=== PATIENT | female | born 1960 | race Asian ===

== ENCOUNTER 2016-06-03 09:18 | Inpatient (IN) | payer BC ==
[~2016-06-03] VITALS: Ht 170.2 cm; Wt 66.2 kg
[2016-06-03] VITALS (12 sets, daily range): BP systolic 121–179; BP diastolic 65–84; PULSE 53–95; TEMP 97.6–98.7
[2016-06-03 13:43] LABS: ADD PATHOLOGY DIFF REVIEW NO
[2016-06-03 13:53] LABS: MEAN CELL VOLUME 98 fl (80.0-100.0); MEAN CORPUSCULAR HGB CONC 32 g/dl (33.0-37.0); MEAN PLATELET VOLUME 11.6 fl (7.4-10.4); PLATELET COUNT 182 K/mm3 (130-400); RED BLOOD COUNT 3.71 M/mm3 (4.10-5.30); REDCELL DISTRIBUTION WIDTH-CV 12.7 % (11.5-14.5); WHITE BLOOD COUNT 9.6 K/mm3 (4.8-10.8)
[2016-06-03 13:54] LABS: HEMATOCRIT 36.3 % (37.0-47.0); HEMOGLOBIN 11.7 g/dl (12.5-16.0); MEAN CORPUSCULAR HEMOGLOBIN 32 pg (27.0-31.0)
[2016-06-03 13:55] LABS: INR 0.9 (0.8-3.0); PROTHROMBIN TIME 10.2 SECONDS (9.7-12.8)
[2016-06-03 14:03] LABS: BAND 11 % (0-10); BASOPHIL 3 % (0-2); EOSINOPHIL 3 % (0-4); NEUTROPHILS 58 % (42.0-75.2); PLATELET ESTIMATE NORMAL (NORMAL); TOTAL CELLS COUNTED 100
[2016-06-03 14:08] LABS: ADJUSTED CALCIUM 8.8 mg/dL (8.4-10.2); ALBUMIN 3.5 gm/dL (3.5-5.0); BILIRUBIN,TOTAL 0.7 mg/dL (0.0-1.0); CALCIUM 8.4 mg/dL (8.4-10.2); MAGNESIUM 4.5 mg/dL (1.6-2.3); PHOSPHOROUS 6.4 mg/dL (2.5-4.5); POTASSIUM 4.6 mmol/L (3.4-5.0); TOTAL PROTEIN 6.6 gm/dL (6.4-8.2)
[2016-06-03 14:12] LABS: CREATININE, serum 4.32 mg/dL (0.52-1.25)
[2016-06-04 01:37] VITALS: BP 112/62; PULSE 76; TEMP 98
[2016-06-04 06:22] VITALS: BP 129/75; PULSE 52; TEMP 97.5
[2016-06-04 07:21] LABS: ADD PATHOLOGY DIFF REVIEW NO
[2016-06-04 07:32] LABS: MEAN CELL VOLUME 99 fl (80.0-100.0); MEAN CORPUSCULAR HGB CONC 32 g/dl (33.0-37.0); MEAN PLATELET VOLUME 11.7 fl (7.4-10.4); PLATELET COUNT 170 K/mm3 (130-400); RED BLOOD COUNT 3.36 M/mm3 (4.10-5.30); REDCELL DISTRIBUTION WIDTH-CV 12.8 % (11.5-14.5); WHITE BLOOD COUNT 11.1 K/mm3 (4.8-10.8)
[2016-06-04 07:33] LABS: HEMATOCRIT 33.2 % (37.0-47.0); HEMOGLOBIN 10.7 g/dl (12.5-16.0); MEAN CORPUSCULAR HEMOGLOBIN 32 pg (27.0-31.0)
[2016-06-04 07:38] LABS: ADJUSTED CALCIUM 8.6 mg/dL (8.4-10.2); ALBUMIN 3.1 gm/dL (3.5-5.0); BILIRUBIN,TOTAL 0.5 mg/dL (0.0-1.0); CALCIUM 7.9 mg/dL (8.4-10.2); CREATININE, serum 2.2 mg/dL (0.52-1.25); MAGNESIUM 3.5 mg/dL (1.6-2.3); PHOSPHOROUS 5.9 mg/dL (2.5-4.5); POTASSIUM 4.3 mmol/L (3.4-5.0); TOTAL PROTEIN 6.1 gm/dL (6.4-8.2)
[2016-06-04 07:39] LABS: BAND 18 % (0-10); EOSINOPHIL 1 % (0-4); METAMYELOCYTE 1 % (0-0); NEUTROPHILS 70 % (42.0-75.2); PLATELET ESTIMATE NORMAL (NORMAL); TOTAL CELLS COUNTED 100
[2016-06-04 08:48] VITALS: BP 130/81; PULSE 100; TEMP 97
[2016-06-04 13:28] VITALS: BP 115/67; PULSE 60; TEMP 97.5
[2016-06-04 17:25] VITALS: BP 126/69; PULSE 66; TEMP 98.2
[2016-06-04 22:30] VITALS: BP 138/79; PULSE 53; TEMP 98.1
[2016-06-05] VITALS (10 sets, daily range): BP systolic 127–173; BP diastolic 64–85; PULSE 48–78; TEMP 97.8–98.5
[2016-06-05 12:40] LABS: BASO # 0.1 (0.0-0.2); BASO % 0.6 % (0.0-2.0); EOS # 0.4 (0.0-0.7); EOS % 4.2 % (0-4.0); GRAN # 7.3 (1.4-6.5); GRAN % 69.2 % (42.2-75.2); LYMPH # 2.2 (1.2-3.4); LYMPH % 21.2 % (20.0-51.0); MEAN CELL VOLUME 97 fl (80.0-100.0); MEAN CORPUSCULAR HGB CONC 33 g/dl (33.0-37.0); MEAN PLATELET VOLUME 11.3 fl (7.4-10.4); MONO # 0.5 (0.1-0.6); MONO % 4.4 % (1.7-9.3); PLATELET COUNT 169 K/mm3 (130-400); RED BLOOD COUNT 3.48 M/mm3 (4.10-5.30); REDCELL DISTRIBUTION WIDTH-CV 12.7 % (11.5-14.5); WHITE BLOOD COUNT 10.6 K/mm3 (4.8-10.8)
[2016-06-05 12:42] LABS: HEMATOCRIT 33.9 % (37.0-47.0); HEMOGLOBIN 11.3 g/dl (12.5-16.0); MEAN CORPUSCULAR HEMOGLOBIN 32 pg (27.0-31.0)
[2016-06-05 12:54] LABS: CALCIUM 8.8 mg/dL (8.4-10.2); CREATININE, serum 1.34 mg/dL (0.52-1.25); MAGNESIUM 2.8 mg/dL (1.6-2.3); PHOSPHOROUS 4.5 mg/dL (2.5-4.5); POTASSIUM 3.9 mmol/L (3.4-5.0)
[2016-06-06 02:21] VITALS: BP 142/74; PULSE 51; TEMP 98.2
[2016-06-06 05:00] VITALS: BP 150/78; PULSE 57; TEMP 98.5
[2016-06-06 06:00] LABS: PH 8 (5-8); SQUAMOUS EPITHELIAL None Seen /hpf; URINE APPEARANCE Hazy; URINE BACTERIA None Seen /hpf; URINE BILIRUBIN Negative (NEGATIVE); URINE BLOOD 3+ (NEGATIVE); URINE COLOR Red; URINE GLUCOSE Negative (NEGATIVE); URINE KETONE Negative (NEGATIVE); URINE RBC >50 /hpf; URINE UROBILINOGEN Negative (NEGATIVE)
[2016-06-06 06:01] LABS: URINE WBC 0-2 /hpf
[2016-06-06 08:20] LABS: HEMATOCRIT 33.7 % (37.0-47.0); HEMOGLOBIN 10.9 g/dl (12.5-16.0)
[2016-06-06 08:56] LABS: CREATININE, serum 1.19 mg/dL (0.52-1.25); POTASSIUM 3.9 mmol/L (3.4-5.0)
[2016-06-06 11:25] VITALS: BP 103/59; PULSE 53; TEMP 98
[2016-06-06 13:25] VITALS: BP 115/66; PULSE 53; TEMP 97.8
[2016-06-06 18:25] VITALS: BP 151/87; PULSE 58; TEMP 98.2
[2016-06-06 20:41] VITALS: BP 130/74; PULSE 88; TEMP 98
[2016-06-06 23:49] LABS: PROT-CREAT RATIO, URINE 1.9 (())
[2016-06-07 02:01] VITALS: BP 153/80; PULSE 53; TEMP 98.2
[2016-06-07 04:31] VITALS: BP 145/78; PULSE 94; TEMP 97.2
[2016-06-07 06:55] LABS: BASO # 0.1 (0.0-0.2); BASO % 0.5 % (0.0-2.0); EOS # 0.4 (0.0-0.7); EOS % 4.2 % (0-4.0); GRAN # 6.8 (1.4-6.5); GRAN % 74.1 % (42.2-75.2); HEMATOCRIT 37.1 % (37.0-47.0); HEMOGLOBIN 12.2 g/dl (12.5-16.0); LYMPH # 1.4 (1.2-3.4); LYMPH % 15.4 % (20.0-51.0); MEAN CELL VOLUME 97 fl (80.0-100.0); MEAN CORPUSCULAR HEMOGLOBIN 32 pg (27.0-31.0); MEAN CORPUSCULAR HGB CONC 33 g/dl (33.0-37.0); MEAN PLATELET VOLUME 11.2 fl (7.4-10.4); MONO # 0.5 (0.1-0.6); MONO % 5.4 % (1.7-9.3); PLATELET COUNT 198 K/mm3 (130-400); RED BLOOD COUNT 3.81 M/mm3 (4.10-5.30); REDCELL DISTRIBUTION WIDTH-CV 12.3 % (11.5-14.5); WHITE BLOOD COUNT 9.1 K/mm3 (4.8-10.8)
[2016-06-07 07:17] LABS: CALCIUM 9.3 mg/dL (8.4-10.2); CREATININE, serum 1.1 mg/dL (0.52-1.25); MAGNESIUM 2.5 mg/dL (1.6-2.3); POTASSIUM 4.1 mmol/L (3.4-5.0)
[2016-06-07 09:52] VITALS: BP 121/69; PULSE 61; TEMP 97.7
[2016-06-07] MEDS ORDERED: COLACE 100100 MG/CAP PO (13:04)
[2016-06-07] MEDS ORDERED: NORVASC 5MG5 MG/TAB PO (13:04)
[2016-06-07] MEDS ORDERED: NORCO 325 MG-51 TAB PO (13:04)
[2016-06-07] MEDS ORDERED: BENTYL 10MG10 MG/CAP PO (13:04)
[2016-06-07 13:50] VITALS: BP 138/73; PULSE 56; TEMP 98.4
== END 2016-06-07 16:00 | disposition home or self-care (01) | DRG 988 ==
LOC: SURG 09:18
PROVIDERS: Family Medicine; Internal Medicine; Internal Medicine Nephrology; Nurse Practitioner Family; Urology
PROC: 0TBB8ZZ Excision of Bladder, Via Natural or Artificial Opening Endoscopic (ICD-10-PCS; principal; 2016-06-03 15:00)
PROC: 0T788DZ Dilation of Bilateral Ureters with Intraluminal Device, Via Natural or Artificial Opening Endoscopic (ICD-10-PCS; 2016-06-03 15:00)
PROC: 0D7P8ZZ Dilation of Rectum, Via Natural or Artificial Opening Endoscopic (ICD-10-PCS; 2016-06-05)
DX: C19 Malignant neoplasm of rectosigmoid junction (principal); N17.9 Acute kidney failure, unspecified; N13.1 Hydronephrosis with ureteral stricture, not elsewhere classified; C78.02 Secondary malignant neoplasm of left lung; K92.1 Melena; I10 Essential (primary) hypertension; F17.210 Nicotine dependence, cigarettes, uncomplicated; E83.41 Hypermagnesemia; E83.39 Other disorders of phosphorus metabolism
CPT/HCPCS: 99223-AI; 99232-AI; 99233-AI; 99239; C1769; C1876; C2617; J0690; J1100; J1644; J2270; J2405; J2704; J3010; J3480; J7030; J7120; Q9967

== ENCOUNTER 2016-07-03 13:44 | Day surgery (SDC) | payer BC ==
[~2016-07-03] VITALS: Ht 170.2 cm; Wt 65.0 kg
[~2016-07-03 13:44] MED LIST: BENTYL 10MG10 MG/CAP PO; COLACE 100100 MG/CAP PO; NORCO 325 MG-51 TAB PO; NORVASC 5MG5 MG/TAB PO
[2016-07-03 14:02] VITALS: BP 98/70; PULSE 81; TEMP 97.9
[2016-07-03 15:30] VITALS: BP 89/68; PULSE 92
== END 2016-07-03 15:47 | disposition home or self-care (01) ==
LOC: SDCO 13:44
DX: C20 Malignant neoplasm of rectum (principal); C18.9 Malignant neoplasm of colon, unspecified

== ENCOUNTER 2016-09-15 06:55 | Day surgery (SDC) | payer BC ==
[~2016-09-15] VITALS: Ht 171.4 cm; Wt 60.9 kg
[2016-09-15] MEDS ORDERED: ROXICODONE 55 MG/TAB PO (07:31)
[2016-09-15 07:38] VITALS: BP 91/59; PULSE 87; TEMP 98.4
[2016-09-15 07:58] LABS: CALCIUM 9.1 mg/dL (8.4-10.2); CREATININE, serum 0.79 mg/dL (0.52-1.25); POTASSIUM 4.1 mmol/L (3.4-5.0)
[2016-09-15 10:12] VITALS: BP 97/62; PULSE 79; TEMP 97.6
[2016-09-15] MEDS ORDERED: SENOKOT8.6 MG PO (10:22)
[2016-09-15] MEDS ORDERED: NORCO 325 MG-51 TAB PO (10:22)
[2016-09-15] MEDS ORDERED: PYRIDIUM 100MG100 MG PO (10:23)
[2016-09-15 10:25] VITALS: BP 93/64; PULSE 82
[2016-09-15 10:50] VITALS: BP 98/56; PULSE 75
[2016-09-15 11:05] VITALS: BP 102/65; PULSE 83; TEMP 97.3
== END 2016-09-15 11:00 | disposition home or self-care (01) ==
LOC: SDCO 06:55
PROVIDERS: Nurse Anesthetist, Certified Registered
DX: N13.1 Hydronephrosis with ureteral stricture, not elsewhere classified (principal); C18.9 Malignant neoplasm of colon, unspecified; J44.9 Chronic obstructive pulmonary disease, unspecified; I10 Essential (primary) hypertension; F17.210 Nicotine dependence, cigarettes, uncomplicated; Z92.21 Personal history of antineoplastic chemotherapy; Z92.3 Personal history of irradiation
CPT/HCPCS: C1769; C2617; J0690; J1100; J2405; J2704; J3010; J7030; Q9967

== ENCOUNTER 2016-12-12 18:18 | Inpatient (IN) | payer BC ==
[~2016-12-12] VITALS: Ht 171.4 cm; Wt 56.6 kg
[2016-12-12] VITALS (208 sets, daily range): BP systolic 87; BP diastolic 69; PULSE 63; TEMP 97; O2SAT 61–100
[~2016-12-12 18:18] MED LIST changes: +PYRIDIUM 100MG100 MG PO; +ROXICODONE 55 MG/TAB PO; +SENOKOT8.6 MG PO
[2016-12-12 20:23] LABS: CALCIUM 9.6 mg/dL (8.4-10.2); POTASSIUM 5.6 mmol/L (3.4-5.0)
[2016-12-12 20:24] LABS: CREATININE, serum 7.78 mg/dL (0.52-1.25)
[2016-12-13] VITALS (1299 sets, daily range): BP systolic 87–125; BP diastolic 64–76; PULSE 56–69; TEMP 97–98.6; O2SAT 78–100
[2016-12-13] MEDS ORDERED: DAZIDOX10 MG PO (01:44)
[2016-12-13 05:22] LABS: BASO % 0.4 % (0.0-2.0); EOS # 0.2 (0.0-0.7); GRAN # 4.3 (1.4-6.5); LYMPH # 0.4 (1.2-3.4); LYMPH % 6.7 % (20.0-51.0); MEAN CELL VOLUME 89 fl (80.0-100.0); MEAN CORPUSCULAR HGB CONC 32 g/dl (33.0-37.0); MEAN PLATELET VOLUME 10.3 fl (7.4-10.4); MONO # 0.3 (0.1-0.6); MONO % 6.5 % (1.7-9.3); PLATELET COUNT 177 K/mm3 (130-400); REDCELL DISTRIBUTION WIDTH-CV 15.7 % (11.5-14.5); WHITE BLOOD COUNT 5.2 K/mm3 (4.8-10.8)
[2016-12-13 05:23] LABS: HEMATOCRIT 23.2 % (37.0-47.0); HEMOGLOBIN 7.3 g/dl (12.5-16.0); MEAN CORPUSCULAR HEMOGLOBIN 28 pg (27.0-31.0)
[2016-12-13 05:27] LABS: INR 1.1 (0.8-3.0); PROTHROMBIN TIME 11.8 SECONDS (9.7-12.8)
[2016-12-13 05:32] LABS: ADJUSTED CALCIUM 9.6 mg/dL (8.4-10.2); BILIRUBIN,TOTAL 0.5 mg/dL (0.0-1.0); CALCIUM 8.8 mg/dL (8.4-10.2); TOTAL PROTEIN 6.4 gm/dL (6.4-8.2)
[2016-12-13 05:39] LABS: CREATININE, serum 8.07 mg/dL (0.52-1.25); POTASSIUM 6.2 mmol/L (3.4-5.0)
[2016-12-13 11:23] LABS: PH 5 (5-8); SQUAMOUS EPITHELIAL 0-2 /hpf; URINE APPEARANCE Cloudy; URINE BACTERIA Rare /hpf; URINE BILIRUBIN Negative (NEGATIVE); URINE BLOOD 2+ (NEGATIVE); URINE COLOR Yellow; URINE GLUCOSE Negative (NEGATIVE); URINE KETONE Negative (NEGATIVE); URINE UROBILINOGEN Negative (NEGATIVE)
[2016-12-13 16:24] LABS: CALCIUM 8.7 mg/dL (8.4-10.2)
[2016-12-13 16:28] LABS: CREATININE, serum 6.93 mg/dL (0.52-1.25)
[2016-12-13 16:29] LABS: POTASSIUM 6.6 mmol/L (3.4-5.0)
[2016-12-13 20:59] LABS: CALCIUM 8.7 mg/dL (8.4-10.2); POTASSIUM 5.2 mmol/L (3.4-5.0)
[2016-12-13 21:08] LABS: CREATININE, serum 6.22 mg/dL (0.52-1.25)
[2016-12-14] VITALS (789 sets, daily range): BP systolic 99–116; BP diastolic 58–71; PULSE 58–70; TEMP 97.5–98.6; O2SAT 84–100
[2016-12-14 04:43] LABS: ADD PATHOLOGY DIFF REVIEW NO
[2016-12-14 04:57] LABS: HEMATOCRIT 23.9 % (37.0-47.0); HEMOGLOBIN 7.5 g/dl (12.5-16.0); MEAN CELL VOLUME 89 fl (80.0-100.0); MEAN CORPUSCULAR HEMOGLOBIN 28 pg (27.0-31.0); MEAN CORPUSCULAR HGB CONC 31 g/dl (33.0-37.0); MEAN PLATELET VOLUME 10.6 fl (7.4-10.4); PLATELET COUNT 204 K/mm3 (130-400); RED BLOOD COUNT 2.69 M/mm3 (4.10-5.30); REDCELL DISTRIBUTION WIDTH-CV 15.9 % (11.5-14.5); RETIC % 0.6 % (0.5-3.52); WHITE BLOOD COUNT 5.2 K/mm3 (4.8-10.8)
[2016-12-14 04:58] LABS: ADJUSTED CALCIUM 9.3 mg/dL (8.4-10.2); BILIRUBIN,TOTAL 0.2 mg/dL (0.0-1.0); CALCIUM 8.5 mg/dL (8.4-10.2); POTASSIUM 5.2 mmol/L (3.4-5.0); TOTAL PROTEIN 6.3 gm/dL (6.4-8.2)
[2016-12-14 05:12] LABS: BAND 19 % (0-10); EOSINOPHIL 2 % (0-4); NEUTROPHILS 70 % (42.0-75.2); PLATELET ESTIMATE NORMAL (NORMAL); ROULEAUX 1+; TOTAL CELLS COUNTED 100
[2016-12-14 05:16] LABS: CREATININE, serum 4.93 mg/dL (0.52-1.25)
[2016-12-15 04:52] VITALS: BP 109/70; PULSE 62; TEMP 97
[2016-12-15 05:47] LABS: CALCIUM 8.3 mg/dL (8.4-10.2); CREATININE, serum 2.41 mg/dL (0.52-1.25); MAGNESIUM 1.5 mg/dL (1.6-2.3); POTASSIUM 3.8 mmol/L (3.4-5.0)
[2016-12-15 08:05] VITALS: BP 124/71; PULSE 59; TEMP 97.7
[2016-12-15 08:39] LABS: BASO % 0.4 % (0.0-2.0); EOS # 0.3 (0.0-0.7); EOS % 6.3 % (0-4.0); GRAN # 3.5 (1.4-6.5); GRAN % 75.9 % (42.2-75.2); LYMPH # 0.4 (1.2-3.4); LYMPH % 8.5 % (20.0-51.0); MEAN CELL VOLUME 87 fl (80.0-100.0); MEAN CORPUSCULAR HGB CONC 32 g/dl (33.0-37.0); MEAN PLATELET VOLUME 11.4 fl (7.4-10.4); MONO # 0.4 (0.1-0.6); MONO % 8.7 % (1.7-9.3); PLATELET COUNT 198 K/mm3 (130-400); RED BLOOD COUNT 2.67 M/mm3 (4.10-5.30); WHITE BLOOD COUNT 4.6 K/mm3 (4.8-10.8)
[2016-12-15 08:40] LABS: HEMATOCRIT 23.2 % (37.0-47.0); HEMOGLOBIN 7.5 g/dl (12.5-16.0); MEAN CORPUSCULAR HEMOGLOBIN 28 pg (27.0-31.0)
[2016-12-15] MEDS ORDERED: MAG-OX 400400 MG/TAB PO (10:43)
[2016-12-15] MEDS ORDERED: FERROUS SU325 MG/TAB PO (10:43)
[2016-12-15] MEDS ORDERED: BACTRIM DS 8001 TAB PO (10:44)
[2016-12-15 11:43] VITALS: BP 115/73; PULSE 65; TEMP 98.2
== END 2016-12-15 17:43 | disposition home or self-care (01) | DRG 683 ==
LOC: ICU 18:18 → MEDICAL 12-14 13:30
PROVIDERS: Family Medicine; Internal Medicine; Physical Therapist; Physician Assistant; Urology
PROC: 0T788DZ Dilation of Bilateral Ureters with Intraluminal Device, Via Natural or Artificial Opening Endoscopic (ICD-10-PCS; principal; 2016-12-13 10:00)
PROC: 0TP98DZ Removal of Intraluminal Device from Ureter, Via Natural or Artificial Opening Endoscopic (ICD-10-PCS; 2016-12-13 10:00)
PROC: BT1D1ZZ Fluoroscopy of Right Kidney, Ureter and Bladder using Low Osmolar Contrast (ICD-10-PCS; 2016-12-13 10:00)
DX: N17.9 Acute kidney failure, unspecified (principal); T83.89XA Other specified complication of genitourinary prosthetic devices, implants and grafts, initial encounter; N39.0 Urinary tract infection, site not specified; C19 Malignant neoplasm of rectosigmoid junction; C78.02 Secondary malignant neoplasm of left lung; E87.2 Acidosis; N13.6 Pyonephrosis; E87.5 Hyperkalemia; Q62.5 Duplication of ureter; Z93.2 Ileostomy status; F17.210 Nicotine dependence, cigarettes, uncomplicated; E83.42 Hypomagnesemia; D64.9 Anemia, unspecified
CPT/HCPCS: 99223-AI; 99232-AI; 99233-AI; 99239; A4315; C1769; C2617; J0690; J0696; J2370; J2550; J2704; J3010; J3475; J7030; Q9967

== ENCOUNTER 2017-01-19 08:53 | Day surgery (SDC) | payer BC ==
[~2017-01-19] VITALS: Ht 172.7 cm; Wt 59.5 kg
[~2017-01-19 08:53] MED LIST changes: +BACTRIM DS 8001 TAB PO; +DAZIDOX10 MG PO; +FERROUS SU325 MG/TAB PO; +MAG-OX 400400 MG/TAB PO
[2017-01-19 09:39] VITALS: BP 104/61; PULSE 71; TEMP 98.2
[2017-01-19 13:25] VITALS: BP 92/68; PULSE 72; TEMP 98.3
[2017-01-19 13:40] VITALS: PULSE 69
[2017-01-19 13:55] VITALS: BP 110/49; PULSE 67
[2017-01-19 14:12] LABS: CALCIUM 8.9 mg/dL (8.4-10.2); CREATININE, serum 3.69 mg/dL (0.52-1.25); POTASSIUM 5.6 mmol/L (3.4-5.0)
[2017-01-19 15:06] VITALS: BP 114/66; PULSE 59
== END 2017-01-19 16:34 | disposition home or self-care (01) ==
LOC: SDCO 08:53
PROVIDERS: Urology
DX: N13.5 Crossing vessel and stricture of ureter without hydronephrosis (principal); T83.12 Displacement of other urinary devices and implants; C19 Malignant neoplasm of rectosigmoid junction; F17.210 Nicotine dependence, cigarettes, uncomplicated; Z79.899 Other long term (current) drug therapy; N19 Unspecified kidney failure; Z68.20 Body mass index [BMI] 20.0-20.9, adult
CPT/HCPCS: C1769; C2617; J0690; J1100; J1170; J2405; J2704; J3010; J7120

== ENCOUNTER 2017-06-22 07:41 | Day surgery (SDC) | payer BC ==
[~2017-06-22] VITALS: Ht 172.7 cm; Wt 71.4 kg
[2017-06-22 08:23] VITALS: BP 111/58; PULSE 71; TEMP 97.4
[2017-06-22 10:35] VITALS: BP 102/67; PULSE 57; TEMP 97.3
[2017-06-22 10:50] VITALS: BP 109/67; PULSE 58
[2017-06-22 11:00] VITALS: BP 106/66; PULSE 57
[2017-06-22 11:15] VITALS: BP 113/70; PULSE 56
[2017-06-22 11:30] VITALS: BP 109/65; PULSE 59
== END 2017-06-22 12:15 | disposition home or self-care (01) ==
LOC: SDCO 07:41
DX: N13.1 Hydronephrosis with ureteral stricture, not elsewhere classified (principal); Q62.5 Duplication of ureter; F17.210 Nicotine dependence, cigarettes, uncomplicated; J44.9 Chronic obstructive pulmonary disease, unspecified; N17.8 Other acute kidney failure; Z85.048 Personal history of other malignant neoplasm of rectum, rectosigmoid junction, and anus; Z85.038 Personal history of other malignant neoplasm of large intestine; Z82.49 Family history of ischemic heart disease and other diseases of the circulatory system
CPT/HCPCS: C1769; C2617; J0690; J1100; J1644; J2405; J2704; J3010; J7120

== ENCOUNTER → 2017-07-05 | Outpatient (CLI) | payer BC | LOC: COL.RAD 08:00 | DX: Z43.2 Encounter for attention to ileostomy (principal); C20 Malignant neoplasm of rectum; Z98.0 Intestinal bypass and anastomosis status ==

== ENCOUNTER 2017-10-05 09:16 | Outpatient (CLI) | payer BC ==
[~2017-10-05] VITALS: Ht 172.7 cm; Wt 72.7 kg
[2017-10-05] VITALS (17 sets, daily range): BP systolic 102–124; BP diastolic 65–86; PULSE 58–75
== END 2017-10-05 15:15 | disposition home or self-care (01) ==
LOC: COL.RAD 09:16
DX: R91.1 Solitary pulmonary nodule (principal); Z85.048 Personal history of other malignant neoplasm of rectum, rectosigmoid junction, and anus

== ENCOUNTER 2017-10-19 05:28 | Day surgery (SDC) | payer BC ==
[~2017-10-19] VITALS: Ht 172.7 cm; Wt 72.1 kg
[2017-10-19 05:47] VITALS: BP 101/73; PULSE 67; TEMP 97.9
[2017-10-19 06:27] LABS: CALCIUM 9.1 mg/dL (8.4-10.2); CREATININE, serum 1.15 mg/dL (0.52-1.25); POTASSIUM 3.7 mmol/L (3.4-5.0)
[2017-10-19 08:35] VITALS: BP 105/66; PULSE 53; TEMP 97.3
[2017-10-19 08:50] VITALS: BP 117/67; PULSE 54
[2017-10-19 09:05] VITALS: BP 119/72; PULSE 53
[2017-10-19 09:20] VITALS: BP 103/69; PULSE 58
[2017-10-19 09:50] VITALS: BP 118/68; PULSE 65
== END 2017-10-19 10:02 | disposition home or self-care (01) ==
LOC: SDCO 05:28
PROVIDERS: Nurse Anesthetist, Certified Registered
DX: N13.1 Hydronephrosis with ureteral stricture, not elsewhere classified (principal); Q62.5 Duplication of ureter; F17.210 Nicotine dependence, cigarettes, uncomplicated; J44.9 Chronic obstructive pulmonary disease, unspecified; G89.29 Other chronic pain; Z90.49 Acquired absence of other specified parts of digestive tract; Z85.038 Personal history of other malignant neoplasm of large intestine
CPT/HCPCS: C1769; C2617; J1100; J1644; J2405; J2704; J3010; J7120

== ENCOUNTER 2017-11-26 12:50 | Day surgery (SDC) | payer BC ==
[~2017-11-26] VITALS: Ht 172.7 cm; Wt 71.4 kg
[2017-11-26 13:58] VITALS: BP 128/77; PULSE 58; TEMP 97.7
[2017-11-26] MEDS ORDERED: DAZIDOX10 MG PO (15:06)
[2017-11-26] MEDS ORDERED: TYLENOL 325MG325 MG PO (15:09)
[2017-11-26 16:17] VITALS: BP 148/75; PULSE 52; TEMP 97.1
[2017-11-26 16:35] VITALS: BP 145/80; PULSE 59
[2017-11-26 16:45] VITALS: BP 140/78; PULSE 52
== END 2017-11-26 17:11 | disposition home or self-care (01) ==
LOC: SDCO 12:50
DX: N13.1 Hydronephrosis with ureteral stricture, not elsewhere classified (principal); Q62.5 Duplication of ureter; R19.7 Diarrhea, unspecified; J44.9 Chronic obstructive pulmonary disease, unspecified; G89.29 Other chronic pain; G62.9 Polyneuropathy, unspecified; F17.210 Nicotine dependence, cigarettes, uncomplicated; Z85.048 Personal history of other malignant neoplasm of rectum, rectosigmoid junction, and anus; Z85.038 Personal history of other malignant neoplasm of large intestine; Z82.49 Family history of ischemic heart disease and other diseases of the circulatory system
CPT/HCPCS: C1769; C2617; J0690; J1100; J1644; J1885; J2250; J2405; J2704; J3010; J7120

== ENCOUNTER 2018-03-07 13:01 | Day surgery (SDC) | payer BC ==
[~2018-03-07] VITALS: Ht 171.4 cm; Wt 73.1 kg
[~2018-03-07 13:01] MED LIST changes: +TYLENOL 325MG325 MG PO
[2018-03-07 13:39] VITALS: BP 140/85; PULSE 74; TEMP 97.9
[2018-03-07] MEDS ORDERED: MULTI VITAMINS1 TAB PO (13:49)
[2018-03-07 15:46] VITALS: TEMP 98.8
[2018-03-07 16:00] VITALS: BP 127/75; PULSE 62
[2018-03-07 16:15] VITALS: BP 140/83; PULSE 62
== END 2018-03-07 17:07 | disposition home or self-care (01) ==
LOC: SDCO 13:01
DX: N13.1 Hydronephrosis with ureteral stricture, not elsewhere classified (principal); Q62.5 Duplication of ureter; C18.9 Malignant neoplasm of colon, unspecified; G62.9 Polyneuropathy, unspecified; N19 Unspecified kidney failure; F17.210 Nicotine dependence, cigarettes, uncomplicated; J44.9 Chronic obstructive pulmonary disease, unspecified; G89.29 Other chronic pain; D64.9 Anemia, unspecified; Z85.040 Personal history of malignant carcinoid tumor of rectum; Z82.49 Family history of ischemic heart disease and other diseases of the circulatory system
CPT/HCPCS: C1769; C2617; J0690; J1100; J1644; J2250; J2405; J2704; J3010; J7120

== ENCOUNTER → 2018-03-20 | Outpatient (CLI) | payer BC ==
[~2018-03-20] MED LIST changes: +MULTI VITAMINS1 TAB PO
== END ==
LOC: COL.RAD 09:53
DX: C20 Malignant neoplasm of rectum (principal); R91.8 Other nonspecific abnormal finding of lung field; Z98.890 Other specified postprocedural states
CPT/HCPCS: Q9967

== ENCOUNTER → 2018-03-29 | Outpatient (CLI) | payer BC | LOC: COL.RAD 03-28 14:30 | DX: C20 Malignant neoplasm of rectum (principal); R51 Headache | CPT/HCPCS: Q9967 ==

== ENCOUNTER → 2018-09-06 | Outpatient (CLI) | payer BC | LOC: COL.RAD 08:19 | DX: C20 Malignant neoplasm of rectum (principal); C78.01 Secondary malignant neoplasm of right lung; C78.02 Secondary malignant neoplasm of left lung; N13.30 Unspecified hydronephrosis; Z96.0 Presence of urogenital implants | CPT/HCPCS: Q9967 ==

== ENCOUNTER 2018-10-11 10:50 | Day surgery (SDC) | payer BC ==
[~2018-10-11] VITALS: Ht 170.2 cm; Wt 71.0 kg
[~2018-10-11 10:50] MED LIST changes: +FENTANYL 12MCG TD; +KRILL OIL 5001 EACH PO; +OMEGA-3 1000 MG1 CAP PO; +PRINZIDE 12.5 M1 TAB PO
[2018-10-11 12:23] VITALS: BP 94/65; PULSE 72; TEMP 98
[2018-10-11 14:20] VITALS: BP 90/57; PULSE 66; TEMP 97.2
--- NOTE | 2018-10-11 14:20 | NUR ---
Patient arrives back to SDC alert, denies pain or nausea. Patient monitor applied, vitals stable. Patient given juice and toast. Patient called her son to give him an update.
[2018-10-11 14:28] VITALS: TEMP 96.6
[2018-10-11 14:35] VITALS: BP 93/61; PULSE 71
--- NOTE | 2018-10-11 14:40 | NUR ---
Patient up to restroom at this time.
--- NOTE | 2018-10-11 14:45 | NUR ---
Patient is able to urinate without any complications or difficulties.
[2018-10-11 14:50] VITALS: BP 100/62; PULSE 63
--- NOTE | 2018-10-11 15:00 | NUR ---
Dismissal instructions gone over with patient and patient's son. Both verbalize understanding and all questions answered.
--- NOTE | 2018-10-11 15:05 | NUR ---
Patient dimissed to home thanking staff for services.
== END 2018-10-11 15:05 | disposition home or self-care (01) ==
LOC: SDCO 10:50
DX: N13.1 Hydronephrosis with ureteral stricture, not elsewhere classified (principal); Q62.5 Duplication of ureter; R19.7 Diarrhea, unspecified; F17.210 Nicotine dependence, cigarettes, uncomplicated; G62.9 Polyneuropathy, unspecified; I10 Essential (primary) hypertension; N19 Unspecified kidney failure; Z85.040 Personal history of malignant carcinoid tumor of rectum; Z82.49 Family history of ischemic heart disease and other diseases of the circulatory system; Z85.118 Personal history of other malignant neoplasm of bronchus and lung
CPT/HCPCS: C1769; C2617; J0690; J1644; J2704; J2765; J3010; J7120

== ENCOUNTER → 2018-11-08 | Outpatient (CLI) | payer MEDICARE, BC | LOC: COL.RAD 07:43 | DX: C20 Malignant neoplasm of rectum (principal); C78.00 Secondary malignant neoplasm of unspecified lung; N28.89 Other specified disorders of kidney and ureter; Z95.9 Presence of cardiac and vascular implant and graft, unspecified; Z96.0 Presence of urogenital implants | CPT/HCPCS: Q9967 ==

== ENCOUNTER → 2019-02-07 | Outpatient (CLI) | payer MEDICARE, BC | LOC: COL.RAD 09:35 | DX: C20 Malignant neoplasm of rectum (principal); N13.30 Unspecified hydronephrosis; R91.8 Other nonspecific abnormal finding of lung field; Z95.9 Presence of cardiac and vascular implant and graft, unspecified; Z96.0 Presence of urogenital implants | CPT/HCPCS: Q9967 ==

== ENCOUNTER 2019-08-14 12:22 | Day surgery (SDC) | payer MEDICARE, BC ==
[~2019-08-14] VITALS: Ht 171.4 cm; Wt 75.0 kg
[2019-08-14] MEDS ORDERED: PRINIVIL20 MG PO (12:58)
[2019-08-14] MEDS ORDERED: BENICAR HCT 251 TAB (13:06)
[2019-08-14 13:50] VITALS: BP 122/83; PULSE 84; TEMP 97.9
[2019-08-14 16:00] VITALS: BP 102/72; PULSE 58
--- NOTE | 2019-08-14 16:00 | NUR ---
Patient returns to room 4 per cart from PACU accompanied by Katja ROCHE and is awake and alert. Temp 97.5 and room air sats 100%. Patient denies pain or nausea. IV fluids infusing via port a catheter on the right chest. Given water, vanilla ice cream and muffin to eat and drink.
[2019-08-14 16:15] VITALS: BP 130/76; PULSE 66
--- NOTE | 2019-08-14 16:15 | NUR ---
Room air sats 100%. Continues to deny pain or nausea.
[2019-08-14 16:30] VITALS: BP 129/72; PULSE 60
--- NOTE | 2019-08-14 16:30 | NUR ---
Port a catheter deaccessed after being flushed per protocol. Site is free of redness and swelling. Bandaid on the site.
--- NOTE | 2019-08-14 16:35 | NUR ---
Patient dresses self and awaits ride home. Ambulatory to the bathroom and voids. Tolerates activity well.
--- NOTE | 2019-08-14 16:40 | NUR ---
Dismissal instructions given and voices understanding of these. Instructed the office will call with follow up date and time.
--- NOTE | 2019-08-14 16:45 | NUR ---
Patient dismissed to home per private vehilce driven by spouse and taken to the front door per wheelchair and assisted into car by this RN with dismissal instructions in hand.
[2019-08-14 17:40] VITALS: BP 102/72; PULSE 61; TEMP 97.7
== END 2019-08-14 16:45 | disposition home or self-care (01) ==
LOC: SDCO 12:22
DX: N13.1 Hydronephrosis with ureteral stricture, not elsewhere classified (principal); Q62.5 Duplication of ureter; G62.9 Polyneuropathy, unspecified; I12.9 Hypertensive chronic kidney disease with stage 1 through stage 4 chronic kidney disease, or unspecified chronic kidney disease; N18.9 Chronic kidney disease, unspecified; F17.210 Nicotine dependence, cigarettes, uncomplicated; Z82.49 Family history of ischemic heart disease and other diseases of the circulatory system; Z85.048 Personal history of other malignant neoplasm of rectum, rectosigmoid junction, and anus; Z92.21 Personal history of antineoplastic chemotherapy; Z11.59 Encounter for screening for other viral diseases
CPT/HCPCS: C1769; C2617; J0690; J1100; J1644; J2405; J2704; J3010; J7120

== ENCOUNTER 2020-01-29 11:36 | Day surgery (SDC) | payer MEDICARE, BC ==
[~2020-01-29] VITALS: Ht 171.4 cm; Wt 77.7 kg
[~2020-01-29 11:36] MED LIST changes: +BENICAR HCT 251 TAB; +PRINIVIL20 MG PO
[2020-01-29 12:22] VITALS: BP 105/72; PULSE 66; TEMP 97.9
[2020-01-29] MEDS ORDERED: LASIX 40MG TABL40 MG PO (12:30)
[2020-01-29] MEDS ORDERED: KLOR-CON SPRIN10 MEQ PO (12:31)
[2020-01-29 14:48] VITALS: BP 113/61; PULSE 62; TEMP 97.5
--- NOTE | 2020-01-29 14:48 | NUR ---
TO RM 6 PER CART FROM OR. ALERT ORIENTED X3, TALKING TO STAFF. RECEIVED APPLE JUICE. DENIES PAIN OR DISCOMFORT AT CURRENT TIME.
[2020-01-29 15:00] VITALS: BP 115/68; PULSE 58
--- NOTE | 2020-01-29 15:00 | NUR ---
PATIENT TEXTING TO SON ON PHONE TO PICK HER UP. RECEIVED ANNA.
[2020-01-29 15:15] VITALS: BP 123/69; PULSE 60
--- NOTE | 2020-01-29 15:15 | NUR ---
ATE 100% AND TOLERATED WELL.
--- NOTE | 2020-01-29 15:25 | NUR ---
RECEIVED DISCHARGE INSTRUCTIONS AND VERBALIZED UNDERSTANDING. FLUSHED PORT WITH SALINE 10CC FOLLOWED BY HEPARIN 5OOUNITS. DICONTINUED KABA NEEDLE AND COVERED WITH BANDAIDE.
--- NOTE | 2020-01-29 15:40 | NUR ---
DISCHARGED PER WC BY NURSING STAFF TO PRIVATE CAR IN CARE OF SON.
== END 2020-01-29 15:58 | disposition home or self-care (01) ==
LOC: SDCO 11:36
DX: N13.1 Hydronephrosis with ureteral stricture, not elsewhere classified (principal); Q62.5 Duplication of ureter; Z85.038 Personal history of other malignant neoplasm of large intestine; Z90.49 Acquired absence of other specified parts of digestive tract; Z87.891 Personal history of nicotine dependence; I10 Essential (primary) hypertension; Z92.21 Personal history of antineoplastic chemotherapy; G62.9 Polyneuropathy, unspecified
CPT/HCPCS: C1769; J0690; J2704; J7120

== ENCOUNTER 2020-08-10 05:59 | Day surgery (SDC) | payer MEDICARE, BC ==
[~2020-08-10] VITALS: Ht 170.2 cm; Wt 78.2 kg
[~2020-08-10 05:59] MED LIST changes: +KLOR-CON SPRIN10 MEQ PO; +LASIX 40MG TABL40 MG PO
[2020-08-10 06:46] VITALS: BP 137/89; PULSE 77; TEMP 97.9
[2020-08-10] MEDS ORDERED: NEURONTIN100 MG/CAP PO (06:57)
[2020-08-10] MEDS ORDERED: NORVASC 10MG10 MG PO (06:57)
[2020-08-10 08:35] VITALS: TEMP 98.4
[2020-08-10 08:45] VITALS: BP 125/66; PULSE 64
--- NOTE | 2020-08-10 08:45 | NUR ---
Patient returns to room 1 per cart from PACU accompanied by Katja ROCHE and is awake and alert. IV fluids infusing right port a catheter site. Site is soft and without redness. Denies pain or nausea. Siderails up x2 and call light in reach. Allowed to rest.
[2020-08-10 09:00] VITALS: BP 115/76; PULSE 73
--- NOTE | 2020-08-10 09:00 | NUR ---
Eating muffin and sipping on Sprite. Continues to deny pain or nausea.
[2020-08-10 09:15] VITALS: BP 132/77; PULSE 65
--- NOTE | 2020-08-10 09:15 | NUR ---
Port deaccessed and site is free of redness or swelling. Assisted up to the bathroom and gait steady. Able to void and returns to room.
--- NOTE | 2020-08-10 09:25 | NUR ---
Patient has dressed self. Awaits ride home. Daughter is driving here to pick her up.
--- NOTE | 2020-08-10 09:33 | NUR ---
Patient dismissed to home driven by daughter and taken to the front door per wheelchair and assisted into vehicle with instructions in hand.
== END 2020-08-10 09:33 | disposition home or self-care (01) ==
LOC: SDCO 05:59
DX: N13.1 Hydronephrosis with ureteral stricture, not elsewhere classified (principal); C67.9 Malignant neoplasm of bladder, unspecified; Q62.5 Duplication of ureter; C78.5 Secondary malignant neoplasm of large intestine and rectum; N18.9 Chronic kidney disease, unspecified; F17.200 Nicotine dependence, unspecified, uncomplicated; Z79.891 Long term (current) use of opiate analgesic; Z79.899 Other long term (current) drug therapy; Z20.822 Contact with and (suspected) exposure to COVID-19; Z90.49 Acquired absence of other specified parts of digestive tract
CPT/HCPCS: C1769; C2617; J0690; J1100; J1644; J2405; J2704; J3010; J7120

== ENCOUNTER → 2020-11-15 | Outpatient (CLI) | payer MEDICARE, BC ==
[~2020-11-15] MED LIST changes: +NEURONTIN100 MG/CAP PO; +NORVASC 10MG10 MG PO
== END ==
LOC: COL.RAD 07:21
DX: C20 Malignant neoplasm of rectum (principal); N83.201 Unspecified ovarian cyst, right side; N83.202 Unspecified ovarian cyst, left side

== ENCOUNTER 2021-05-10 09:53 | Day surgery (SDC) | payer MEDICARE, BC ==
[~2021-05-10] VITALS: Ht 170.2 cm; Wt 79.0 kg
--- NOTE | 2021-05-10 10:23 | NUR ---
PATIENT AMBULATED INTO SDC UNIT WITH STEADY GAIT. PATIENT IS ALERT AND ORIENTED X 4. NO FAMILY WITH PATIENT. HISTORY COMPLETED. CONSENT EXPALAINED AND PATIENT SIGNED. ASSESSMENT COMPLETED. LUNGS CTA. HEART S2,S1 AND REGULAR. BOWEL SOUNDS HEARD. PEDAL PULSES FELT. CALL LIGHT EXPLAINED AND PATIENT VOICED UNDERSTANDING.
[2021-05-10] MEDS ORDERED: ELIQUIS 2.5 PO (10:42)
[2021-05-10 10:50] VITALS: BP 125/71; PULSE 75; TEMP 97.9
[2021-05-10 12:50] VITALS: BP 99/62; PULSE 62; TEMP 97
--- NOTE | 2021-05-10 12:50 | NUR ---
RECEIVED VERBAL REPORT FROM ORIENTATION AND MOBILITY SPECIALIST. PATIENT TRANSPORTED PER CART FROM PACU TO SD[facility] UNIT ACCOMPANIED BY ORIENTATION AND MOBILITY SPECIALIST. MONITORS APPLIED. VSS ON ROOM AIR. PATIENT TALKS WITH STAFF. NO FAMILY IN ROOM. 1255 PATIENT GIVEN APPLE JUICE AND MUFFIN. PATIENT CALLED FRIEND AND INFORMED OF APPROX TIME FOR PICKUP.
[2021-05-10 12:54] VITALS: TEMP 97.9
[2021-05-10 13:00] VITALS: BP 105/53; PULSE 68
--- NOTE | 2021-05-10 13:00 | NUR ---
VSS ON ROOM AIR. PATIENT LOOKING AT PHONE. PATIENT DENIES DISCOMFORT AND NAUSEA. TOLERATES FOOD AND DRINK WITHOUT PROBLEMS.
[2021-05-10 13:15] VITALS: BP 110/61; PULSE 65
--- NOTE | 2021-05-10 13:15 | NUR ---
VSS ON ROOM AIR. PATIENT DENIES DISCOMFORT AND NAUSEA. PATIENT TOLERATES MUFFING AND JUICE WITHOUT PROBLEMS.
[2021-05-10 13:30] VITALS: BP 112/62; PULSE 63
--- NOTE | 2021-05-10 13:30 | NUR ---
VSS ON ROOM AIR. PATIENT IV HELPLOCKED. PATIENT AMBULATED TO RESTROOM WITH STEADY GAIT. PATIENT VOIDS WITHOUT PROBLEMS. 1335 IV DC'D WITH CATHETER TIP INTACT. PRESSURE AND BANDAGE APPLIED. 1340 DISCHARGE INSTRUCTIONS GIVEN VERBAL AND DISHCARGE PACKET PROVIDED. QUESTIONS ANSWERED AND PATIENT VOICED UNDERSTANDING. PATIENT CHANGES INTO STREET CLOTHES. 1346 PATIENT DISMISSED PER WHEEL CHAIR ACCOMPAN[facility] BY AMB RN [facility]END.
== END 2021-05-10 13:46 | disposition home or self-care (01) ==
LOC: SDCO 09:53
DX: N13.1 Hydronephrosis with ureteral stricture, not elsewhere classified (principal); Q62.5 Duplication of ureter; C19 Malignant neoplasm of rectosigmoid junction; I10 Essential (primary) hypertension; G62.9 Polyneuropathy, unspecified; Z79.899 Other long term (current) drug therapy; Z87.891 Personal history of nicotine dependence
CPT/HCPCS: C1769; C2617; J0690; J2405; J2704; J3010; J7120

== ENCOUNTER 2021-07-19 11:21 | Day surgery (SDC) | payer MEDICARE, BC ==
[~2021-07-19] VITALS: Ht 171.4 cm; Wt 76.9 kg
[~2021-07-19 11:21] MED LIST changes: +ELIQUIS 2.5 PO
[2021-07-19] MEDS ORDERED: ASPI325T6 PO (12:15)
[2021-07-19] MEDS ORDERED: STIVARGA (12:18)
[2021-07-19 12:34] VITALS: BP 153/79; PULSE 73; TEMP 97.6
[2021-07-19 15:00] VITALS: BP 124/74; PULSE 56; TEMP 97.1
--- NOTE | 2021-07-19 15:00 | NUR ---
PT TO BAY 5 PER CART FROM PACU. RECEIVED REPORT FROM KALEY PEREZ. VS GINO. PT TOLERATING ICE CHIPS. CALL LIGHT WITHIN REACH. PT REQUESTING SPRITE. WILL CONTINUE TO MONITOR.
[2021-07-19 15:15] VITALS: BP 142/74; PULSE 53
--- NOTE | 2021-07-19 15:15 | NUR ---
PT TOLERATING SPRITE. CONTINUES TO REST COMFORTABLY. DENIES ANY PAIN AT THIS TIME. WILL CONTINUE TO MONITOR.
[2021-07-19 15:30] VITALS: BP 129/77; PULSE 57
--- NOTE | 2021-07-19 15:30 | NUR ---
PT CONTINUES TO TOLERATE SPRITE. DENIES ANY PAIN AT THIS TIME. PT REQUESTING TO USE RESTROOM. PT AMBULATED TO RESTROOM WITHOUT DIFFICULTY. STAND BY ASSIST. PT VOIDED WITHOUT DIFFICULTY.
--- NOTE | 2021-07-19 15:40 | NUR ---
IV DC'D. TOLERATED WELL.
--- NOTE | 2021-07-19 16:00 | NUR ---
DISCHARGE EDUCATION COMPLETED WITH PT AND HER SON. VERBALIZED UNDERSTANDING OF HOME AND FOLLOW UP CARE. ALL QUESTIONS ANSWERED. DISCHARGE PAPERWORK GIVEN TO PT.
[2021-07-19 16:05] VITALS: BP 125/86; PULSE 58; TEMP 97.7
--- NOTE | 2021-07-19 16:30 | NUR ---
PT OFF UNIT PER WHEELCHAIR. PT DISCHARGE TO HOME WITH SON PER PERSONAL VEHICLE.
== END 2021-07-19 16:30 | disposition home or self-care (01) ==
LOC: SDCO 11:21
DX: N13.1 Hydronephrosis with ureteral stricture, not elsewhere classified (principal); R31.0 Gross hematuria; Z87.891 Personal history of nicotine dependence
CPT/HCPCS: C1758; C1769; C2617; J0690; J1100; J2405; J2704; J3010; J7120; Q9967

== ENCOUNTER 2021-09-20 11:50 | Inpatient (IN) | payer MEDICARE, BC ==
[~2021-09-20] VITALS: Ht 170.2 cm; Wt 77.3 kg
[2021-09-20] VITALS (605 sets, daily range): BP systolic 76–141; BP diastolic 34–78; PULSE 85–90; TEMP 97.6–99; O2SAT 77–100
[~2021-09-20 11:50] MED LIST changes: +ASPI325T6 PO; +STIVARGA
[2021-09-20 13:27] LABS: MEAN CELL VOLUME 87 fl (80.0-100.0); MEAN CORPUSCULAR HGB CONC 34 g/dl (33.0-37.0); PLATELET COUNT 73 K/mm3 (130-400); REDCELL DISTRIBUTION WIDTH-CV 15.9 % (11.5-14.5)
[2021-09-20 13:43] LABS: ALBUMIN 1.6 gm/dL (3.4-4.8); CALCIUM 7.8 mg/dL (8.4-10.2); CREATININE, serum 6.15 mg/dL (0.57-1.11); PHOSPHOROUS 5.3 mg/dL (2.3-4.7); POTASSIUM 4.5 mmol/L (3.5-4.5)
[2021-09-20 13:48] LABS: HEMATOCRIT 27.7 % (37.0-47.0); HEMOGLOBIN 9.3 g/dl (12.5-16.0); MEAN CORPUSCULAR HEMOGLOBIN 29 pg (27-31)
[2021-09-20 14:28] LABS: ANISOCYTOSIS 1+; LYMPHOCYTE 1 % (20.0-51.0); NEUTROPHILS 94 % (42.0-75.2); PLATELET ESTIMATE DECREASED (NORMAL)
--- NOTE | 2021-09-20 15:20 | NUR ---
PT trasnfered via EMS. Arrived to ICU8, unable to transfer self due to dizziness when standing. Examination at the time of presentation to our hospital patient was alert oriented x2 and delirious She required vasopressor support DOPAMINE 7.5 MCG/KG/MIN. PT arrived with daughter. Orientated to room, call light within reach.
[2021-09-20] MEDS ORDERED: ZESTRIL 20MG TA20 MG PO (16:49)
[2021-09-20] MEDS ORDERED: FLEXERIL 1010 MG/TAB PO (16:49)
[2021-09-21] VITALS (1021 sets, daily range): BP systolic 99–133; BP diastolic 60–81; PULSE 72–97; TEMP 97.6–101; O2SAT 81–100
[2021-09-21 06:34] LABS: HEMATOCRIT 26.2 % (37.0-47.0); HEMOGLOBIN 8.7 g/dl (12.5-16.0); MEAN CELL VOLUME 88 fl (80.0-100.0); MEAN CORPUSCULAR HEMOGLOBIN 29 pg (27-31); MEAN CORPUSCULAR HGB CONC 33 g/dl (33.0-37.0); PLATELET COUNT 80 K/mm3 (130-400); RED BLOOD COUNT 2.98 M/mm3 (4.10-5.30)
[2021-09-21 06:54] LABS: ALBUMIN 1.4 gm/dL (3.4-4.8); CALCIUM 8.6 mg/dL (8.4-10.2); CREATININE, serum 5.97 mg/dL (0.57-1.11); PHOSPHOROUS 6.3 mg/dL (2.3-4.7); POTASSIUM 4.5 mmol/L (3.5-4.5)
--- NOTE | 2021-09-21 08:17 | NUR ---
Patient has hazardous drug listed in home medications: regorafenib. Staff should follow chemo precautions when handling urine and feces for 6 days after last administration. No last dose currently listed so precautions are ongoing. Sign placed outside patient room and notified care team.
[2021-09-21 08:26] LABS: PATHOLOGY DIFF REVIEW OK
[2021-09-21 09:13] LABS: BAND 16 % (0-10); BURR CELLS 3+; LYMPHOCYTE 3 % (20.0-51.0); NEUTROPHILS 71 % (42.0-75.2); PLATELET ESTIMATE DECREASED (NORMAL)
--- NOTE | 2021-09-21 10:21 | NUR ---
THIS AM PATIENT IS AWAKE LAYING IN BED WITH DAUGHTER BEDSIDE. PT HAS BEEN OFF OF A LEVOPHED SINCE 08 MAINTAINING BLOOD PRESSURE WNL. PT DENIES PAIN. PT IS MAKING URINE. PT APPEARS COMFORTABLE. CALL LIGHT IN REACH.
--- NOTE | 2021-09-21 10:58 | NUR ---
Sw met with patient to complete intake. Patient's daughter present at bedside. Patient lives at home alone in [place], but daughter states the patient will alternate staying at her own home and her daughters home every other week. Patient is independent with her ADL's and does not utilize any DME to assist with mobility. Patient has no home oxygen needs. PCP is Dr. Natanael Crowe and she follows Dr. Coats for oral chemo treatments and she utilizes [facility] for prescription needs. Patient does have a DPOA-HC established and a copy can be found in the patient's EMR.
--- NOTE | 2021-09-21 19:03 | NUR ---
REPORT GIVEN TO KALEY COLES.
--- NOTE | 2021-09-21 21:50 | NUR ---
PT BROUGHT UP FROM ICU
--- NOTE | 2021-09-22 00:30 | NUR ---
Pt recieved from ICU. Alert and oriented, follows commands, calm and cooperative. Ambulated from wheel chair to bed. Weak gait with standby assistance. Denies pain/SOB/dizziness. Key catheter noted. Adequate urine output. Shift assessment performed. Allergies reviewed. Reviewed med rx confirmed correct pharmacy with pt. Medications administered per orders and education provided. NS continuing into PICC line in SYEDA. Antibx administered per orders. VS stable. Afebrile. Resting currently. No significant skin issues or edema noted. Pt has dominic cath in right chest. Pt does not report any questions at this time, will continue to monitor.
--- NOTE | 2021-09-22 06:27 | NUR ---
[facility] DOWN FROM [phone]. SEE PAPER CHARTING ON PT'S CHART FOR END OF SHIFT REPORT, MEDICATIONS ADMINISTERED, AND VITALS.
[2021-09-22 07:07] LABS: MEAN CELL VOLUME 89 fl (80.0-100.0); MEAN CORPUSCULAR HGB CONC 32 g/dl (33.0-37.0); MEAN PLATELET VOLUME 12.9 fl (7.4-10.4); PLATELET COUNT 97 K/mm3 (130-400)
[2021-09-22 07:09] VITALS: BP 107/53; PULSE 89; TEMP 98.5
[2021-09-22 07:18] LABS: HEMATOCRIT 24.9 % (37.0-47.0); MEAN CORPUSCULAR HEMOGLOBIN 29 pg (27-31)
[2021-09-22 07:22] LABS: ALBUMIN 1.3 gm/dL (3.4-4.8); CREATININE, serum 4.99 mg/dL (0.57-1.11); MAGNESIUM 1.7 mg/dL (1.6-2.6); PHOSPHOROUS 4.4 mg/dL (2.3-4.7); POTASSIUM 4.4 mmol/L (3.5-4.5)
[2021-09-22 08:42] LABS: BAND 22 % (0-10); BURR CELLS 1+; EOSINOPHIL 3 % (0-4); LYMPHOCYTE 3 % (20.0-51.0); NEUTROPHILS 70 % (42.0-75.2); OVALOCYTES 1+; SCHISTOCYTES 1+
[2021-09-22 08:43] LABS: PLATELET ESTIMATE DECREASED (NORMAL)
--- NOTE | 2021-09-22 08:45 | NUR ---
PT APPEARS VERY DROWSY, FLAT AFFECT, REPORTS NAUSEA BUT STATES "ITS OK RIGHT NOW", DENIES PAIN OR DIARRHEA AT THIS TIME. PT AOX4, ASSESSMENT PERFORMED, PICC FLUSHED, NO OTHER NEEDS
--- NOTE | 2021-09-22 09:49 | NUR ---
Clarified with patient's daughter that she was actively taking her chemotherapy agent up until Saturday 09/16. Agent requires precautions for 6 days following last administration so patient off precautions today. Notified care team.
[2021-09-22 11:08] VITALS: BP 103/53; PULSE 84; TEMP 97.9
--- NOTE | 2021-09-22 11:42 | NUR ---
LIDOCAINE PATCH APPLIED AND ROXICODONE GIVEN PER PT REQUEST, PT SITTING UP WITH DAUGHTER AT BEDSIDE ATTEMPTING TO EAT LUNCH. PT HAVING LITTLE PO INTAKE, REFUSED BREAKFAST.
--- NOTE | 2021-09-22 12:10 | NUR ---
PT REPORTING PAIN IN BACK, LIDOCAINE PATCH APPLIED, OSEI GIVEN, PT THEN REPORTING NAUSEA, ORDER OBTAINED FOR ZOFRAN, ZOFRAN GIVEN.
--- NOTE | 2021-09-22 14:38 | NUR ---
Audit Machine Operator met with patient and patient's daughter to review discharge plan. Patient's daughter advised she would like to see how patient does the next couple of days before deciding rehab vs hospice. Adele would prefer [facility] if they decide to do rehab. Discharge Plan: Pending at this time
[2021-09-22 15:14] VITALS: BP 105/58; PULSE 76; TEMP 97.8
--- NOTE | 2021-09-22 17:16 | NUR ---
PT PLEASANT, DROWSY, VENCES DRAINING CLEAR YELLOW URINE, PT DENIES PAIN OR NAUSEA AT THIS TIME, PT DAUGHTER AT BEDSIDE DURING MAJORITY OF SHIFT, CALL LIGHT WITHIN REACH, MEDICATIONS GIVEN PER EMAR, NO OTHER NEEDS.
--- NOTE | 2021-09-22 18:26 | NUR ---
RECIEVED FENA RESULTS FROM LAB, SODIUM SIGNIFICANTLY LOWER THAN INITIAL DRAW IN AM, WILL REPEAT LAB TO CONFIRM RESULTS. SECOND URINE DRAWN AND LAB NOTIFIED TO DRAW BLOOD, BLOOD OBTAINED FROM PT PORT
[2021-09-22 18:43] LABS: CREATININE, serum 4.61 mg/dL (0.57-1.11)
[2021-09-22 18:45] LABS: FRACTIONAL EXCRETION OF NA+ 4.14 %
[2021-09-22 20:18] VITALS: BP 118/96; PULSE 95; TEMP 98.3
[2021-09-23 00:02] VITALS: BP 122/71; PULSE 108; TEMP 99.3
[2021-09-23 04:20] VITALS: BP 108/48; PULSE 95; TEMP 98.5
--- NOTE | 2021-09-23 05:45 | NUR ---
ASSESSMENT COMPLETE FOR THIS SHIFT. PT ON THE BEDSIDE COMMODE WHEN I WALKED IN FOR ASSESSMENT. PT CLEANED UP, AND HELPED BACK TO BED. PT DENIED GENERAL PAIN, CHEST PAIN, PALPITATIONS, N,V,D, SOB OR DIZZINESS. PT HAD A PRETTY UNEVENTFUL NIGHT. PT EXPRESSED NO OTHER NEEDS AT THIS TIME. CALL LIGHT WITHIN REACH.
[2021-09-23 07:13] VITALS: BP 116/64; PULSE 86; TEMP 98.4
[2021-09-23 07:31] LABS: MEAN CELL VOLUME 86 fl (80.0-100.0); MEAN CORPUSCULAR HGB CONC 34 g/dl (33.0-37.0); PLATELET COUNT 84 K/mm3 (130-400); RED BLOOD COUNT 2.64 M/mm3 (4.10-5.30); REDCELL DISTRIBUTION WIDTH-CV 16.1 % (11.5-14.5)
[2021-09-23 07:40] LABS: HEMATOCRIT 22.6 % (37.0-47.0); HEMOGLOBIN 7.7 g/dl (12.5-16.0); MEAN CORPUSCULAR HEMOGLOBIN 29 pg (27-31)
[2021-09-23 08:09] LABS: ALBUMIN 1.3 gm/dL (3.4-4.8); CALCIUM 7.7 mg/dL (8.4-10.2); CREATININE, serum 4.35 mg/dL (0.57-1.11); MAGNESIUM 1.6 mg/dL (1.6-2.6); PHOSPHOROUS 3.6 mg/dL (2.3-4.7); POTASSIUM 4.3 mmol/L (3.5-4.5)
[2021-09-23 08:28] LABS: BAND 7 % (0-10); MICROCYTOSIS 1+; NEUTROPHILS 83 % (42.0-75.2); OVALOCYTES 1+; PLATELET ESTIMATE DECREASED (NORMAL); SCHISTOCYTES 1+
[2021-09-23 08:29] LABS: POIKILOCYTOSIS 2+
[2021-09-23 11:31] LABS: BILIRUBIN,TOTAL 5.8 mg/dL (0.2-1.2); TOTAL PROTEIN 5.5 gm/dL (6.2-8.1)
[2021-09-23 11:41] VITALS: BP 113/58; PULSE 87; TEMP 98.2
--- NOTE | 2021-09-23 14:30 | NUR ---
Ase Certified Technician met with patient's daughter who advised she talked with Hospitalist about continuing to monitor patient's progress and will plan to make decisions regarding discharge planning and goals of care on Sunday. Patient's daughter advised she does not think patient can tolerate inpatient rehab at this time. Patient's daughter provided a medical advance directive form which included questions about code status. SW provided this to hospitalist to review with patient and daughter before signing.
[2021-09-23 15:12] VITALS: BP 112/64; PULSE 87; TEMP 98.2
[2021-09-23 19:48] LABS: HEMATOCRIT 23.3 % (37.0-47.0); HEMOGLOBIN 7.8 g/dl (12.5-16.0)
[2021-09-23 20:20] VITALS: BP 133/66; PULSE 105; TEMP 98.1
[2021-09-24] VITALS (7 sets, daily range): BP systolic 92–133; BP diastolic 51–75; PULSE 78–114; TEMP 97.8–99.9
--- NOTE | 2021-09-24 05:15 | NUR ---
ASSESSMENT COMPLETE FOR THIS SHIFT. PT SITTING ON THE BEDSIDE COMMODE CRYING WHEN I WALKED IN. I ASKED PT WHAT WAS WRONG. PT STATED SHE TOLD A DAYSHIFT STAFF HER STOMACH HURT AND THEY TOLD HER THEY WOULD COME BACK TO HELP HER, BUT SHE WAITED 20 MINUTES AND NO ONE CAME BACK TO HELP HER. THAT SHE HAD TO GET HERSELF TO THE BEDSIDE COMMODE AND SHE DIDN'T QUITE MAKE (BM WAS ON HER BED, HER GOWN, HERSELF AND ALL OVER THE COMMODE). I APOLOGIZED TO PT, THAT THAT HAPPEN TO HER AND THAT I WOULD GET HER CLEANED UP, GET HER A NEW GROWN, CHANGE HER BEDDING, AND GET HER SOMETHING FOR HER STOMACH. ALL OF THE ABOVE WAS DONE BY MYSELF, WITH THE HELP OF AN AID(ONCE AN AID WAS FREE). PT GIVEN ROXICODONE AND ZOFRAN FOR HER STOMACH PAIN AND NAUSEA. PT FELT THE ROXICODONE AND ZOFRAN WAS EFFECTIVE. PT STATED SHE FELT MUCH BETTER TONIGHT. PT ALSO HAD NO OTHER COMPLAINTS FOR THIS REST OF THE NIGHT. PT DENIED CHEST PAIN, SOB, N,V,D OR DIZZINESS. PT EXPRESSED NO OTHER NEEDS AT THIS TIME. CALL LIGHT WITHIN REACH.
--- NOTE | 2021-09-24 06:30 | NUR ---
THE PATIENT IS SLEEPING AT THIS TIME.
[2021-09-24 07:32] LABS: MEAN CELL VOLUME 85 fl (80.0-100.0); MEAN CORPUSCULAR HGB CONC 34 g/dl (33.0-37.0); MEAN PLATELET VOLUME 13.6 fl (7.4-10.4); PLATELET COUNT 96 K/mm3 (130-400); RED BLOOD COUNT 2.65 M/mm3 (4.10-5.30); REDCELL DISTRIBUTION WIDTH-CV 15.9 % (11.5-14.5)
[2021-09-24 07:35] LABS: HEMATOCRIT 22.4 % (37.0-47.0); HEMOGLOBIN 7.7 g/dl (12.5-16.0); MEAN CORPUSCULAR HEMOGLOBIN 29 pg (27-31)
[2021-09-24 08:01] LABS: ALBUMIN 1.3 gm/dL (3.4-4.8); CALCIUM 7.7 mg/dL (8.4-10.2); CREATININE, serum 3.72 mg/dL (0.57-1.11); MAGNESIUM 1.5 mg/dL (1.6-2.6); POTASSIUM 4.2 mmol/L (3.5-4.5)
[2021-09-24 08:05] LABS: BAND 3 % (0-10); EOSINOPHIL 1 % (0-4); LYMPHOCYTE 4 % (20.0-51.0); NEUTROPHILS 88 % (42.0-75.2); PLATELET ESTIMATE NORMAL (NORMAL); ROULEAUX 1+
--- NOTE | 2021-09-24 19:00 | NUR ---
PT HAD UNEVETFUL DAY. THE PATIENT WAS ABLE TO GET UP AND HAVE A SHOWER TODAY. THIS EVENING SHE DID COMPLAIN OF SOME ABDOMINAL PAIN FOR WHICH SHE WAS GIVEN ROXICODONE. THE PATIENT DENIES ANY OTHER NEEDS. SHE HAS NOT BEEN EATING VERY WELL AT ALL. THE FAMILY HAS BEEN BRINGING FOOD IN FOR HER, BUT SHE DOES NOT EAT MUCH OF IT AT ALL. NO OTHER CONCERNS WITH THIS PATIENT. REPORT WAS GIVEN TO KALEY MC.
[2021-09-25] VITALS (13 sets, daily range): BP systolic 108–145; BP diastolic 58–78; PULSE 68–88; TEMP 98–99.3
--- NOTE | 2021-09-25 06:59 | NUR ---
pt on RA, IVF infusing per SYEDA PICC @75cc/hr, no c/o pain this shift, able to sleep, PAC in rt chest accessed, pt has been receiving chemo thru it, so nursing is not using. dressing intact/secure.
[2021-09-25 07:06] LABS: ALBUMIN 1.2 gm/dL (3.4-4.8); CALCIUM 7.7 mg/dL (8.4-10.2); CREATININE, serum 3.64 mg/dL (0.57-1.11); MAGNESIUM 1.6 mg/dL (1.6-2.6); PHOSPHOROUS 3.7 mg/dL (2.3-4.7); POTASSIUM 4.7 mmol/L (3.5-4.5)
[2021-09-25 08:17] LABS: MEAN CELL VOLUME 87 fl (80.0-100.0); MEAN CORPUSCULAR HGB CONC 33 g/dl (33.0-37.0); MEAN PLATELET VOLUME 11.8 fl (7.4-10.4); PLATELET COUNT 73 K/mm3 (130-400); RED BLOOD COUNT 2.31 M/mm3 (4.10-5.30); REDCELL DISTRIBUTION WIDTH-CV 16.4 % (11.5-14.5)
[2021-09-25 08:29] LABS: HEMATOCRIT 20.1 % (37.0-47.0); MEAN CORPUSCULAR HEMOGLOBIN 29 pg (27-31)
[2021-09-25 08:31] LABS: HEMOGLOBIN 6.6 g/dl (12.5-16.0)
--- NOTE | 2021-09-25 08:37 | NUR ---
REPORT FROM LAB HGB DROPPED TO 6.6. CONTACTED THE PHYSICIAN WHO STATES THE PATIENT WILL NEED A TRANSFUSION. DISCUSSED WITH WILFRED THE PATIENT'S DAUGHTER, WILL DO 1 TRANSFUSION AND SEE HOW SHE REACTS TO IT.
[2021-09-25 10:10] LABS: ANISOCYTOSIS 1+; EOSINOPHIL 2 % (0-4); HYPOCHROMIA 1+; LYMPHOCYTE 9 % (20.0-51.0); METAMYELOCYTE 2 % (0-0); NEUTROPHILS 86 % (42.0-75.2); PLATELET ESTIMATE DECREASED (NORMAL)
--- NOTE | 2021-09-25 12:22 | NUR ---
INITIAL BLOOD ORDERED WAS NOT IRRADIATED, CONTACTED DR. HANKINS WHO STATES WE CAN CHANGE THE ORDER TO IRRADIATED BLOOD. BLOOD BANK HAS NOTIFIED THIS RN OF THE BLOOD BEING READY, WILL START BLOOD TRANSFUSION SOON.
--- NOTE | 2021-09-25 14:25 | NUR ---
THE PATIENT IS TOLERATING BLOOD TRANSFUSION WELL. DENIES ANY SHORTNESS OF BREATH OR ANXIETY. NO INCREASING TEMPERATURES. THE PATIENT DOES STATE SHE HAS SOME SLIGHT BACK PAIN, CONSISTENT WITH THE PAIN PRIOR TO TRANSFUSION. NO OTHER CONCERNS .
[2021-09-25 19:15] LABS: HEMATOCRIT 22.6 % (37.0-47.0); HEMOGLOBIN 7.7 g/dl (12.5-16.0)
--- NOTE | 2021-09-25 19:28 | NUR ---
HGB RESULTED AT 7.7 S/P 1xPRBC TRANSFUSION. CONTACTED DAUGHTER TO LET HER KNOW THE RESULT. NO CONCERNS. REPORT WAS GIVEN TO KALEY ANTON.
[2021-09-26 04:30] VITALS: BP 135/66; PULSE 92; TEMP 98.7
--- NOTE | 2021-09-26 05:50 | NUR ---
ASSESSMENT COMPLETE FOR THIS SHIFT. PT RESTLESS IN BED COMPLAINING OF ABD PAIN. PT GIVEN FENTANYL FOR PAIN. PT FELT FENTANYL EFFECTIVE FOR HER PAIN. ALMOST TWO HOURS LATER PT COMPLAINED OF ANKLE PAIN. PT'S ANKLES APPEARED TO BE SWOLLEN AND ADRIAN. I ASKED PT IF SHE'S TWISTED HER ANKLES OR FELL. PT STATED SHE HAD NOT BEEN OUT OF BED TODAY. HOSPITALIST CALLED WITH CONCERNS. ORDERED TO CONTINUE TO MONITOR FOR CHANGES. WILL CONTINUE TO MONTIOR. PT DENIED CHEST PAIN, PALPITATIONS, SOB, N,V,D OR DIZZINESS. PT EXPRESSED NO OTHER NEEDS AT THIS TIME. CALL LIGHT WITHIN REACH
[2021-09-26 06:58] VITALS: BP 125/65; PULSE 93; TEMP 99.8
[2021-09-26 07:23] LABS: MEAN CELL VOLUME 87 fl (80.0-100.0); MEAN CORPUSCULAR HGB CONC 33 g/dl (33.0-37.0); MEAN PLATELET VOLUME 12.3 fl (7.4-10.4); PLATELET COUNT 78 K/mm3 (130-400); RED BLOOD COUNT 2.58 M/mm3 (4.10-5.30); REDCELL DISTRIBUTION WIDTH-CV 16.3 % (11.5-14.5)
[2021-09-26 07:25] LABS: HEMATOCRIT 22.5 % (37.0-47.0); HEMOGLOBIN 7.5 g/dl (12.5-16.0); MEAN CORPUSCULAR HEMOGLOBIN 29 pg (27-31)
[2021-09-26 07:48] LABS: BAND 12 % (0-10); LYMPHOCYTE 3 % (20.0-51.0); NEUTROPHILS 80 % (42.0-75.2); OVALOCYTES 1+; PLATELET ESTIMATE DECREASED (NORMAL)
[2021-09-26 07:53] LABS: ALBUMIN 1.2 gm/dL (3.4-4.8); BILIRUBIN,TOTAL 2.6 mg/dL (0.2-1.2); CALCIUM 7.9 mg/dL (8.4-10.2); CREATININE, serum 3.09 mg/dL (0.57-1.11); TOTAL PROTEIN 5.3 gm/dL (6.2-8.1)
[2021-09-26 08:13] LABS: PATHOLOGY DIFF REVIEW OK
[2021-09-26 11:30] VITALS: BP 127/66; PULSE 96; TEMP 99.3
--- NOTE | 2021-09-26 15:03 | NUR ---
Stockroom Attendant attended clinical rounds with the team and patient's daughter, Adele is at bedside. Hospitalist discussed goals of care with patient who would like to try rehab. Patient's first preference [facility] in [place] and if for some reason they cannot accept, patient's second preference would be [place] in [place] as this is where patient's lives. FADI contacted Ana at [facility] and faxed referral. Ana advised they can likely accept and will be here tomorrow to screen patient in person. Discharge Plan: [facility]
[2021-09-26 15:55] VITALS: BP 137/65; PULSE 100; TEMP 98.9
[2021-09-26 20:20] VITALS: BP 147/40; PULSE 90; TEMP 101.4
[2021-09-26 20:21] LABS: HEMATOCRIT 23.3 % (37.0-47.0); HEMOGLOBIN 7.7 g/dl (12.5-16.0)
--- NOTE | 2021-09-26 20:31 | NUR ---
Pt has elevated temperature of 101.4, notified ESTIVEN Greenberg. Will administer prn tylenol and new blood cultures have been ordered for pt. Notified lab of changes. Will continue to monitor.
--- NOTE | 2021-09-27 00:09 | NUR ---
Pt alert and oriented, resting quietly. Follows commands. Denies chest pain/SOB. Denies abdominal pain. Key catheter in place. Adequate urine output. Urine is amaya color. Pt had temp of 101.4 at 1999. Notified provider. Administered prn tylenol and new blood cx were ordered. Pt does not have any shivering or diaphoresis. Shift assessment performed. Medications administered per orders and education provided. BP and heart rate stable. Pt currently NSR, but runs between NSR and sinus tach. BP runs elevated. Pt continuing with daily antibx. No significant skin issues noted. Tolerated medications PO with water. PICC noted in SYEDA, clean/dry/intact. Pt does not report any questions at this time, will continue to monitor.
[2021-09-27 00:19] VITALS: BP 120/76; PULSE 94; TEMP 98.2
[2021-09-27 04:10] VITALS: BP 114/56; PULSE 82; TEMP 98.2
--- NOTE | 2021-09-27 04:50 | NUR ---
No adverse events overnight. Pt alert and oriented when awake, currently resting. Follows commands. Denies current acute pain. Continuing with antibx daily and IV protonix. Temperature max overnight 101.4F. Prn tylenol administered with a temperature decrease. VS stable. NSR. Key has adequate urine output. Pt does not report any questions at this time, will continue to monitor.
[2021-09-27 07:29] LABS: MEAN CELL VOLUME 88 fl (80.0-100.0); MEAN CORPUSCULAR HGB CONC 33 g/dl (33.0-37.0); PLATELET COUNT 73 K/mm3 (130-400); RED BLOOD COUNT 2.41 M/mm3 (4.10-5.30); REDCELL DISTRIBUTION WIDTH-CV 16.5 % (11.5-14.5)
[2021-09-27 07:38] LABS: HEMATOCRIT 21.3 % (37.0-47.0); HEMOGLOBIN 7.1 g/dl (12.5-16.0); MEAN CORPUSCULAR HEMOGLOBIN 29 pg (27-31)
[2021-09-27 07:48] LABS: CREATININE, serum 3.01 mg/dL (0.57-1.11)
[2021-09-27 08:13] VITALS: BP 124/64; PULSE 88; TEMP 98.7
[2021-09-27 09:49] LABS: BAND 10 % (0-10); BASOPHIL 1 % (0-2); LYMPHOCYTE 4 % (20.0-51.0); NEUTROPHILS 84 % (42.0-75.2); PLATELET ESTIMATE DECREASED (NORMAL)
[2021-09-27 09:50] LABS: ANISOCYTOSIS 2+; HYPOCHROMIA 2+; MICROCYTOSIS 1+; POIKILOCYTOSIS 2+; SCHISTOCYTES 1+
[2021-09-27 09:51] LABS: BURR CELLS 1+; OVALOCYTES 1+
--- NOTE | 2021-09-27 10:32 | NUR ---
Barber Tool Sharpener faxed clinical updates to Ana at [facility]. Ana expressed that they cannot do IV Fentynal at their facility and inquired when the last time patient had received it.
[2021-09-27 12:35] VITALS: BP 134/72; PULSE 88; TEMP 97.8
--- NOTE | 2021-09-27 14:41 | NUR ---
Ana, at [facility], reports that they will be at the hospital this afternoon to screen the patient. The patient's family was updated. The patient's daughter expressed to social studies department chair, Chelsi, that if [facility] cannot take; their second preference is [facility] and third preference is [place]. FADI consulted IPR Director, Daria. The patient's son, Kirsten, contacted FADI. Kirsten states that he is taking a Leave of Absence from work to help and needs assistance with the [place] paperwork. He emailed the forms to this SW. FADI notified and provided the forms to the hospitalist. The hospitalist states that he does not have time today to complete forms, but will try tomorrow. FADI updated Deonna.Hugo.
--- NOTE | 2021-09-27 15:26 | NUR ---
Ana, at [facility], arrived to the hospital to screen the patient. Ana reports that they are able to accept the patient. FADI met with the patient, her daughter (Adele), and son () to update. The patient and her family would like to pursue with [facility]. FADI discussed transportation through [facility] or by private vehicle. Adele states that she can provide transportation, as long as patient is discharged in the morning. She feels like the patient would be more comfortable with this. She states that she would need to leave the hospital around [id number]. FADI updated Ana at [facility]. Ana requests a COVID test today. FADI updated the PA and the patient's RN and asked the a COVID test be done today. *Discharge plan: [facility]*
[2021-09-27 15:48] VITALS: BP 123/64; PULSE 90; TEMP 98.8
[2021-09-27 19:48] VITALS: BP 138/77; PULSE 87; TEMP 98.4
[2021-09-28 00:33] VITALS: BP 121/64; PULSE 93; TEMP 100
--- NOTE | 2021-09-28 01:25 | NUR ---
PATIENT TO DISCHARGE TO [facility] IN [place] AROUND 10AM TOMORROW PATIENT REMAINS A-FEBRILE AROUND 0100 TEMP 100 ORAL PROIVDED ICE PACK AND REMOVED ALL 3 BLANKETS OFF PATIENT. ALSO DISCONTNUED VENCES CATHETER 1245 THIS MORNING PATIENT TOLERATED WELL. COVID SWAB NEGATIVE INFORMED PATIENT. WILL CONTNUE TO MONITOR PATIENT THROUGHOUT SHIFT.
[2021-09-28 04:11] VITALS: BP 130/72; PULSE 107; TEMP 98.5
--- NOTE | 2021-09-28 04:30 | NUR ---
REMOVED VENCES CATHETER AROUND 1245 THIS AM PATIENT ABLE TO VOID 200CC ON BSC AROUND 0430 TOLERATED WELL.
--- NOTE | 2021-09-28 05:49 | NUR ---
INFORMED HOSPITALIST IN REGARDS TO PATIENT BLOOD CULTURES RESULTING GRAM POSITIVE COCCI. ALSO INFORMED BLOOD CULTURES OBTAINED THROUGH PICC LINE AND INFORMED OF PATIENT HAVING TEMP 100 AROUNG MIDNIGHT.
--- NOTE | 2021-09-28 06:30 | NUR ---
PT COMPLAINS OF PAIN IN THE RIGHT FOOT. THE PATIENT DENIES ANY CURRENT NAUSEA OR VOMITTING. UPON ASSESSMENT, THE PATIENT'S RIGHT FOOT IN REDENNED, WARM TO TOUCH AND HAS SOME SWELLING.
[2021-09-28 07:16] LABS: PATHOLOGY DIFF REVIEW OK
[2021-09-28 08:00] VITALS: BP 141/67; PULSE 99; TEMP 98.4
--- NOTE | 2021-09-28 08:12 | NUR ---
Vancomycin Initial Dosing Pharmacy Note Ordering provider: MD Tay Indication/duration: [facility]ER[facility] LABS: WBC 15.6 (today's lab pending), CrCl ~18 Recommendation: vancomycin by levels Loading dose: 1.5 grams Maintenance dose: to be determined by levels Trough goal: 15-20 ug/mL. trough as clinically indicated
[2021-09-28 08:39] LABS: MEAN CELL VOLUME 90 fl (80.0-100.0); MEAN CORPUSCULAR HGB CONC 33 g/dl (33.0-37.0); PLATELET COUNT 93 K/mm3 (130-400); RED BLOOD COUNT 2.54 M/mm3 (4.10-5.30); REDCELL DISTRIBUTION WIDTH-CV 16.7 % (11.5-14.5)
[2021-09-28 08:53] LABS: HEMATOCRIT 22.8 % (37.0-47.0); HEMOGLOBIN 7.4 g/dl (12.5-16.0); MEAN CORPUSCULAR HEMOGLOBIN 29 pg (27-31)
[2021-09-28 09:02] LABS: CALCIUM 8.3 mg/dL (8.4-10.2); CREATININE, serum 2.86 mg/dL (0.57-1.11); MAGNESIUM 1.7 mg/dL (1.6-2.6); POTASSIUM 4.9 mmol/L (3.5-4.5)
[2021-09-28 09:08] LABS: BAND 11 % (0-10); EOSINOPHIL 2 % (0-4); LYMPHOCYTE 5 % (20.0-51.0); METAMYELOCYTE 1 % (0-0); NEUTROPHILS 78 % (42.0-75.2); PLATELET ESTIMATE DECREASED (NORMAL)
--- NOTE | 2021-09-28 09:40 | NUR ---
The patient's blood cultures came back positive. The clinical team is not ready to discharge the patient. FADI notified Ana at [facility]. SW to fax updates to [facility]. *Discharge plan: [facility]*
[2021-09-28 11:31] VITALS: BP 125/66; PULSE 90; TEMP 97.7
[2021-09-28 15:42] VITALS: BP 128/70; PULSE 72; TEMP 97.8
[2021-09-28 20:00] VITALS: BP 120/71; PULSE 82; TEMP 98.2
[2021-09-29] VITALS (12 sets, daily range): BP systolic 122–141; BP diastolic 64–76; PULSE 72–90; TEMP 97.3–98.5
--- NOTE | 2021-09-29 05:30 | NUR ---
ASSESSMENT COMPLETE FOR THIS SHIFT. PT RESTING IN BED WATCHING TV. PT DENIED GENERAL PAIN, CHEST PAIN, PALPITATIONS, N,V,D, SOB OR DIZZINESS. PT HAD A PRETTY UNEVENTFUL NIGHT. PT EXPRESSED NO ADDITIONAL NEEDS AT THIS TIME.
--- NOTE | 2021-09-29 07:50 | NUR ---
COMPLAINS OF PAIN, AT 09/16, OXYCODONE 10MG PO GIVEN
[2021-09-29 08:18] LABS: MEAN CELL VOLUME 91 fl (80.0-100.0); MEAN CORPUSCULAR HGB CONC 32 g/dl (33.0-37.0); PLATELET COUNT 89 K/mm3 (130-400); RED BLOOD COUNT 2.31 M/mm3 (4.10-5.30)
[2021-09-29 08:21] LABS: CALCIUM 8.3 mg/dL (8.4-10.2); CREATININE, serum 2.78 mg/dL (0.57-1.11); POTASSIUM 5.3 mmol/L (3.5-4.5)
[2021-09-29 09:17] LABS: HEMATOCRIT 21.1 % (37.0-47.0); HEMOGLOBIN 6.7 g/dl (12.5-16.0); MEAN CORPUSCULAR HEMOGLOBIN 29 pg (27-31)
[2021-09-29 09:24] LABS: BAND 8 % (0-10); EOSINOPHIL 1 % (0-4); LYMPHOCYTE 3 % (20.0-51.0); METAMYELOCYTE 1 % (0-0); NEUTROPHILS 84 % (42.0-75.2); OVALOCYTES 1+; PLATELET ESTIMATE DECREASED (NORMAL); SCHISTOCYTES 1+
--- NOTE | 2021-09-29 15:39 | NUR ---
SW faxed updates to [facility].
[2021-09-29 17:55] LABS: HEMATOCRIT 25.4 % (37.0-47.0); HEMOGLOBIN 8.1 g/dl (12.5-16.0)
--- NOTE | 2021-09-29 18:18 | NUR ---
patient doing fine, vss, o/a x4 , denies any pain throughout the day, pt given kayexalate due to high pottassium, blood tranfusion done due to low bp, no adverse reaction noted
[2021-09-30] VITALS (7 sets, daily range): BP systolic 115–125; BP diastolic 62–70; PULSE 67–82; TEMP 97.7–98.9
--- NOTE | 2021-09-30 06:00 | NUR ---
ASSESSMENT COMPLETE FOR THIS SHIFT. PT RESTING IN BED NAPPING. PT COMPLAINED OF A HEADACHE. PT GIVEN ROXICODONE FOR PAIN. PT FELT PAIN MEDICATION WAS EFFECTIVE. PT EXPRESSED NO OTHER NEEDS AT THIS TIME. CALL LIGHT WITHIN REACH.
[2021-09-30 06:53] LABS: MEAN CELL VOLUME 93 fl (80.0-100.0); MEAN CORPUSCULAR HGB CONC 32 g/dl (33.0-37.0); MEAN PLATELET VOLUME 13.4 fl (7.4-10.4); PLATELET COUNT 86 K/mm3 (130-400); REDCELL DISTRIBUTION WIDTH-CV 17.4 % (11.5-14.5)
[2021-09-30 07:04] LABS: HEMATOCRIT 23.2 % (37.0-47.0); HEMOGLOBIN 7.3 g/dl (12.5-16.0); MEAN CORPUSCULAR HEMOGLOBIN 29 pg (27-31)
[2021-09-30 07:08] LABS: CALCIUM 7.9 mg/dL (8.4-10.2); CREATININE, serum 2.56 mg/dL (0.57-1.11); MAGNESIUM 1.9 mg/dL (1.6-2.6)
[2021-09-30 07:58] LABS: BAND 13 % (0-10); EOSINOPHIL 3 % (0-4); LYMPHOCYTE 6 % (20.0-51.0); METAMYELOCYTE 1 % (0-0); NEUTROPHILS 75 % (42.0-75.2); PLATELET ESTIMATE DECREASED (NORMAL); SCHISTOCYTES 1+
--- NOTE | 2021-09-30 10:44 | NUR ---
PT WITH A PICC LINE ON THE LEFT UPPER ARM, DAILY NS FLUSH DONE ,RED PORT IS GOOD BUT THE PURPLE PORT HAS RESISTANCE FLUSH NOT ACHIEVED, [facility] NOTIFIED
--- NOTE | 2021-09-30 11:00 | NUR ---
Contacted due to unable to flush PICC. sterile dressing change done with insertion site cleansed with chloraprep x 1, catheter kinked at site and re-positioned x 1, skin prep, stat lock, chlorhexidine impregnated disk applied. skin prep, stat lock, and tegaderm applied. both ports flushed with 10ml normal saline without difficulty with good blood return noted. RN informed.
--- NOTE | 2021-09-30 14:27 | NUR ---
The PA notified FADI that the patient is now considering and would prefer to stay in [place] and go to our hospital[facility]. FADI contacted the patient's daughter, Adele, to review the above. Adele reports that her mother is now wanting to do this. She states that she is wanting to honor her mother's wishes. FADI consulted IPR Director, Daria. Daria reports that they would not be able to take over the weekend and that the patient is already walking 200 ft without any devices. Daria believes the patient will be too functional for IPR, by Sunday. FADI met with the patient to update. The patient mentioned the option of going home. SW also discussed the option of a SNF in the area. The patient is unsure of what to do. FADI contacted the patient's daughter, Adele, to update. Adele states that she is on her way to the hospital now and will talk to her mother about the options and what she would like to do. She states that she will contact this SW back with their decision. FADI provided her with this FADI's phone number. FADI attempted to update Ana at [facility]. FADI left her a voicemail.
--- NOTE | 2021-09-30 15:18 | NUR ---
Adele contacted FADI. Adele states that after talking to the patient, they would like to see how she does over the weekend. If she is still doing well come Sunday, then they would be interested in the patient returning home with home health. If rehab is still needed, they are open [facility]. FADI updated the PA.
--- NOTE | 2021-09-30 18:26 | NUR ---
PT HAD A CALM DAY, VSS, ORIENT AND ALERT X4, DENIES PAIN, NO COMPLAINTS RAISED THROUGHOUT THE DAY
[2021-10-01 04:24] VITALS: BP 115/64; PULSE 74; TEMP 98.4
[2021-10-01 07:06] LABS: MEAN CELL VOLUME 92 fl (80.0-100.0); MEAN CORPUSCULAR HGB CONC 32 g/dl (33.0-37.0); MEAN PLATELET VOLUME 12.4 fl (7.4-10.4); PLATELET COUNT 95 K/mm3 (130-400); RED BLOOD COUNT 2.48 M/mm3 (4.10-5.30); REDCELL DISTRIBUTION WIDTH-CV 17.2 % (11.5-14.5)
[2021-10-01 07:10] LABS: HEMATOCRIT 22.8 % (37.0-47.0); HEMOGLOBIN 7.2 g/dl (12.5-16.0); MEAN CORPUSCULAR HEMOGLOBIN 29 pg (27-31)
[2021-10-01 07:30] VITALS: BP 132/68; PULSE 82; TEMP 98
[2021-10-01 07:30] LABS: CREATININE, serum 2.4 mg/dL (0.57-1.11); MAGNESIUM 1.9 mg/dL (1.6-2.6); POTASSIUM 5.1 mmol/L (3.5-4.5)
[2021-10-01 07:57] LABS: BAND 3 % (0-10); LYMPHOCYTE 8 % (20.0-51.0); PLATELET ESTIMATE DECREASED (NORMAL)
[2021-10-01 07:58] LABS: ANISOCYTOSIS 1+; HYPOCHROMIA 1+
[2021-10-01 07:59] LABS: NEUTROPHILS 85 % (42.0-75.2)
--- NOTE | 2021-10-01 09:01 | NUR ---
ASSESSMENT COMPLETE FOR THIS SHIFT. PT COMPLAINED OF SOME PAIN TO THE ABD. PT GIVEN ROXICODONE. PT FELT THE PAIN MEDICATION WAS EFFECTIVE. CALL LIGHT WITHIN REACH.
[2021-10-01 11:51] VITALS: BP 125/69; PULSE 64; TEMP 98
[2021-10-01 15:28] VITALS: BP 132/76; PULSE 78; TEMP 98
[2021-10-01 20:39] VITALS: BP 138/72; PULSE 77; TEMP 98.7
[2021-10-02] VITALS: BP 126/72; PULSE 73; TEMP 98.1
[2021-10-02 04:08] VITALS: BP 127/69; PULSE 72; TEMP 98.3
--- NOTE | 2021-10-02 05:30 | NUR ---
ASSESSMENT COMPLETE FOR THIS SHIFT. PT UP TO THE RESTROOM WHEN I WALKED FOR ASSESSMENT. PT COMPLAINED OF A HEADACHE. PT GIVEN ROXICODONE FOR PAIN. PT FELT PAIN MEDICATION WAS EFFECTIVE. PT DENIED CHEST PAIN, PALPITATIONS, N,V,D, OR DIZZINESS. PT EXPRESSED NO OTHER NEEDS AT THIS TIME. CALL LIGHT WITHIN REACH.
[2021-10-02 08:00] VITALS: BP 115/55; PULSE 68; TEMP 97.9
--- NOTE | 2021-10-02 08:00 | NUR ---
Pt doing well at this time with no complaints. She has ordered breakfast, no needs verbalized, will continue to monitor
[2021-10-02 08:04] LABS: MEAN CELL VOLUME 95 fl (80.0-100.0); MEAN CORPUSCULAR HGB CONC 30 g/dl (33.0-37.0); MEAN PLATELET VOLUME 12.9 fl (7.4-10.4); PLATELET COUNT 105 K/mm3 (130-400); REDCELL DISTRIBUTION WIDTH-CV 17.1 % (11.5-14.5)
[2021-10-02 08:05] LABS: HEMATOCRIT 23.8 % (37.0-47.0); HEMOGLOBIN 7.2 g/dl (12.5-16.0); MEAN CORPUSCULAR HEMOGLOBIN 29 pg (27-31)
[2021-10-02 08:25] LABS: CALCIUM 8.2 mg/dL (8.4-10.2); CREATININE, serum 2.4 mg/dL (0.57-1.11); MAGNESIUM 1.9 mg/dL (1.6-2.6)
[2021-10-02 09:52] LABS: ANISOCYTOSIS 1+; BASOPHIL 1 % (0-2); EOSINOPHIL 1 % (0-4); HYPOCHROMIA 3+; LYMPHOCYTE 7 % (20.0-51.0); NEUTROPHILS 88 % (42.0-75.2); PLATELET ESTIMATE DECREASED (NORMAL)
[2021-10-02 09:53] LABS: SCHISTOCYTES 1+
--- NOTE | 2021-10-02 10:00 | NUR ---
Pt having complaints of a headache, PRN Tylenol given. Pt had and tolerated breakfast with no complaints. No other needs verbalized, call light within reach
--- NOTE | 2021-10-02 11:00 | NUR ---
Pt refused to work with therapy, stated that she was tired. Checked in with pt and she stated that she feels okay, just tired. Pt stated the Tylenol did help with the headache, no complaints at this time
--- NOTE | 2021-10-02 11:45 | NUR ---
FADI faxed updates to [facility].
[2021-10-02 12:00] VITALS: BP 125/67; PULSE 62; TEMP 97.8
--- NOTE | 2021-10-02 14:19 | NUR ---
Pt continues to do well with no complaints. Pt is currently sitting up in the chair. Call light within reach, will continue to monitor
[2021-10-02 16:13] VITALS: BP 140/74; PULSE 61; TEMP 97.9
--- NOTE | 2021-10-02 18:36 | NUR ---
Pt has done well throughout the day with minimal complaints/ needs.
[2021-10-02 19:35] VITALS: BP 152/77; PULSE 66; TEMP 98.1
[2021-10-03 00:05] VITALS: BP 141/69; PULSE 71; TEMP 98.1
[2021-10-03 04:00] VITALS: BP 129/63; PULSE 67; TEMP 98
--- NOTE | 2021-10-03 06:00 | NUR ---
ASSESSMENT COMPLETE FOR THIS SHIFT. PT RESTLESS IN BED, COMPLAINING OF A HEADACHE. PT GIVEN ROXICODONE FOR PAIN. PT FELT PAIN MEDICATION WAS EFFECTIVE. PT DENIED CHEST PAIN, N,V,D, SOB OR DIZZINESS. PT EXPRESSED NO OTHER CONCERNS AT THIS TIME. CALL LIGHT WITHIN REACH.
[2021-10-03 06:44] LABS: MEAN CELL VOLUME 94 fl (80.0-100.0); MEAN CORPUSCULAR HGB CONC 31 g/dl (33.0-37.0); MEAN PLATELET VOLUME 11.1 fl (7.4-10.4); PLATELET COUNT 116 K/mm3 (130-400); RED BLOOD COUNT 2.53 M/mm3 (4.10-5.30); REDCELL DISTRIBUTION WIDTH-CV 17.1 % (11.5-14.5)
[2021-10-03 06:45] LABS: HEMATOCRIT 23.7 % (37.0-47.0); HEMOGLOBIN 7.3 g/dl (12.5-16.0); MEAN CORPUSCULAR HEMOGLOBIN 29 pg (27-31)
[2021-10-03 07:16] LABS: CALCIUM 8.3 mg/dL (8.4-10.2); CREATININE, serum 2.34 mg/dL (0.57-1.11)
[2021-10-03 07:22] LABS: BAND 8 % (0-10); EOSINOPHIL 2 % (0-4); LYMPHOCYTE 8 % (20.0-51.0); NEUTROPHILS 77 % (42.0-75.2); OVALOCYTES 1+; PLATELET ESTIMATE DECREASED (NORMAL); SCHISTOCYTES 1+
[2021-10-03 07:29] VITALS: BP 123/73; PULSE 73; TEMP 98.2
[2021-10-03 07:54] LABS: POTASSIUM 4.9 mmol/L (3.5-4.5)
--- NOTE | 2021-10-03 08:00 | NUR ---
Patient sitting up in the recliner, A&Ox4. VSS. IV CDI. Denies pain and discomfort. Independent in the room. Call light within reach
[2021-10-03] MEDS ORDERED: BLUE-EMU LIDOC1 EACH TP (09:26)
[2021-10-03] MEDS ORDERED: MIRALAX510G PO (09:26)
[2021-10-03] MEDS ORDERED: PROTONIX 40MG T40 MG PO (09:40)
--- NOTE | 2021-10-03 09:52 | NUR ---
FADI attended clinical rounds. The patient is walking 200 ft with therapy without any devices. The patient states that she would like to return home with home health. FADI followed up with the patient and provided her with Medicare.gov's list of home health agencies that serve [place]. The patient was unsure of what agency to use and asked that SW contact her daughter. FADI presented and read the IM form outloud to the patient. The patient verbalized understanding and of agreement to discharge today. She signed the form and FADI provided her with a copy. FADI contacted the patient's daughter, Adele, to review the above. Adele confirms discharge plan and she would like to try and use [facility]. FADI contacted and faxed a referral to Raz at [facility]. The patient is to discharge today, 01/03, with home health services for fci/PT/OT from [facility]. FADI notified and faxed orders to Raz at [facility]. No additional needs at this time.
--- NOTE | 2021-10-03 11:06 | NUR ---
Port right chest deaccessed with 5ml heparin IV. Tip intact, bandaid applied. Patient waiting on sonto go over [place] paperwork. Call light within reach
[2021-10-03 11:18] VITALS: BP 119/65; PULSE 69; TEMP 98
--- NOTE | 2021-10-03 11:46 | NUR ---
FADI followed up with the hospitalist team about the [facility] paperwork. The paperwork has not been completed yet. The patient's RN updated the son. He states he may just need a work release letter. The PA completed this letter and it was provided to the patient's son, HOMERO. JJ would also like for FADI to send the [place] paperwork to the patient's PCP. FADI contacted the patient's PCP's officer, [facility]. The architectural superintendent reports that they can complete the documents and to fax it over. FADI faxed the [facility] paperwork to [facility]. The patient's son, HOMERO, was updated.
--- NOTE | 2021-10-03 12:02 | NUR ---
Patient taken by wheelchair to sons vehicle. Discharge paperwork reviewed with the patient and family. No further needs expressed
== END 2021-10-03 12:02 | disposition home health service (06) | DRG 659 ==
LOC: ICU 11:50 → EDSTATUS 13:45 → SDCO 13:45 → ICU 09-21 11:30 → MEDICAL 09-21 21:45
PROVIDERS: Family Medicine; Student in an Organized Health Care Education/Training Program; Urology; ADMIT Internal Medicine
PROC: 0TP98DZ Removal of Intraluminal Device from Ureter, Via Natural or Artificial Opening Endoscopic (ICD-10-PCS; 2021-09-20)
PROC: 02HV33Z Insertion of Infusion Device into Superior Vena Cava, Percutaneous Approach (ICD-10-PCS; 2021-09-20)
PROC: 0T788DZ Dilation of Bilateral Ureters with Intraluminal Device, Via Natural or Artificial Opening Endoscopic (ICD-10-PCS; principal; 2021-09-20 13:45)
PROC: 0TP98DZ Removal of Intraluminal Device from Ureter, Via Natural or Artificial Opening Endoscopic (ICD-10-PCS; 2021-09-20 13:45)
DX: T83.122A Displacement of indwelling ureteral stent, initial encounter (principal); N18.6 End stage renal disease; A41.9 Sepsis, unspecified organism; R65.21 Severe sepsis with septic shock; N13.1 Hydronephrosis with ureteral stricture, not elsewhere classified; C78.5 Secondary malignant neoplasm of large intestine and rectum; N17.9 Acute kidney failure, unspecified; E87.2 Acidosis; D62 Acute posthemorrhagic anemia; I12.0 Hypertensive chronic kidney disease with stage 5 chronic kidney disease or end stage renal disease; Z66 Do not resuscitate; I95.9 Hypotension, unspecified; B96.1 Klebsiella pneumoniae [K. pneumoniae] as the cause of diseases classified elsewhere; G62.0 Drug-induced polyneuropathy; Z20.822 Contact with and (suspected) exposure to COVID-19; D69.59 Other secondary thrombocytopenia; T45.1X5A Adverse effect of antineoplastic and immunosuppressive drugs, initial encounter; Y92.238 Other place in hospital as the place of occurrence of the external cause; Y83.8 Other surgical procedures as the cause of abnormal reaction of the patient, or of later complication, without mention of misadventure at the time of the procedure; E87.5 Hyperkalemia; Z79.82 Long term (current) use of aspirin; Z87.442 Personal history of urinary calculi; Y92.89 Other specified places as the place of occurrence of the external cause; Z23 Encounter for immunization
CPT/HCPCS: 99223-AI; 99231-AI; 99232-AI; 99233-AI; 99239; A4314; C1751; C1769; C1892; C2617; C9113; J0696; J2185; J2405; J2704; J3010; J3370; J7030; J7050; J7060; J7070; P9040

== ENCOUNTER → 2021-11-29 | Outpatient (CLI) | payer MEDICARE, BC ==
[~2021-11-29] MED LIST changes: +BLUE-EMU LIDOC1 EACH TP; +FLEXERIL 1010 MG/TAB PO; +MIRALAX510G PO; +PROTONIX 40MG T40 MG PO; +ZESTRIL 20MG TA20 MG PO
== END ==
LOC: COL.RAD 10:28
DX: C78.00 Secondary malignant neoplasm of unspecified lung (principal); C20 Malignant neoplasm of rectum; N13.30 Unspecified hydronephrosis

== ENCOUNTER 2021-12-27 10:10 | Day surgery (SDC) | payer MEDICARE, BC ==
[~2021-12-27] VITALS: Ht 170.2 cm; Wt 97.6 kg
[~2021-12-27 10:10] MED LIST changes: -STIVARGA; +STIVARGA PO
[2021-12-27 10:32] VITALS: BP 146/89; PULSE 75; TEMP 97.6
--- NOTE | 2021-12-27 11:00 | NUR ---
Patient has an implanted port in her right upper chest. It was accessed with sterile technique with good blood return noted. patient complains of discomfort from her right wrist to her shoulder. "it feels like a shock." Advised primary care nurse to report complaint to physician and apply a warm moist pack.
[2021-12-27] MEDS ORDERED: NORVASC2.5 MG PO (11:58)
[2021-12-27 13:40] VITALS: BP 133/70; PULSE 62; TEMP 97.1
[2021-12-27 13:55] VITALS: BP 149/79; PULSE 61
[2021-12-27 14:10] VITALS: BP 146/78; PULSE 77
--- NOTE | 2021-12-27 15:00 | NUR ---
1340: Patient arrived back into bay 2 from PACU. Patient is alert and oriented. Vital signs stable on room air. Report received from KALEY Schmidt. Patient requesting sprite and blueberry muffins. Patient denies pain and nausea. Call light left within reach. 1355: Patient vitally stable. Tolerating food and drink well. Denies pain or nausea at this time. Patient up to restroom via stand by assist. Able to void successfully. 1410: Port-a-cath deaccessed per protocol. Patient to get dressed independently in room. 1415: Went through discharge instructions with patient. Questions answered. 1425: Escorted to patient entrance via wheelchair. Patient left in the care of her son.
== END 2021-12-27 14:30 | disposition home or self-care (01) ==
LOC: SDCO 10:10
DX: N13.1 Hydronephrosis with ureteral stricture, not elsewhere classified (principal); Q62.5 Duplication of ureter; Z85.048 Personal history of other malignant neoplasm of rectum, rectosigmoid junction, and anus; F17.200 Nicotine dependence, unspecified, uncomplicated
CPT/HCPCS: C1769; C2617; J0690; J1100; J1644; J2405; J2704; J3010; J7120

== ENCOUNTER 2022-01-20 15:48 | Inpatient (IN) | payer MEDICARE, BC ==
[~2022-01-20] VITALS: Ht 172.7 cm; Wt 69.7 kg
[~2022-01-20 15:48] MED LIST changes: +NORVASC2.5 MG PO
[2022-01-20 16:20] LABS: BASO % 0.5 % (0.0-2.0); EOS % 0.5 % (0.0-4.0); GRAN # 4.8 K/mm3 (1.4-6.5); GRAN % 82.2 % (42.2-75.2); HEMATOCRIT 21.2 % (37.0-47.0); LYMPH # 0.5 K/mm3 (1.2-3.4); MEAN CELL VOLUME 98 fl (80.0-100.0); MEAN CORPUSCULAR HEMOGLOBIN 30 pg (27-31); MEAN CORPUSCULAR HGB CONC 31 g/dl (33.0-37.0); MEAN PLATELET VOLUME 11.6 fl (7.4-10.4); MONO # 0.4 K/mm3 (0.1-0.6); MONO % 7.1 % (1.7-9.3); PLATELET COUNT 103 K/mm3 (130-400); RED BLOOD COUNT 2.16 M/mm3 (4.10-5.30); REDCELL DISTRIBUTION WIDTH-CV 14.9 % (11.5-14.5)
[2022-01-20 16:21] LABS: HEMOGLOBIN 6.5 g/dl (12.5-16.0)
[2022-01-20 16:38] LABS: ALBUMIN 1.9 gm/dL (3.4-4.8); BILIRUBIN,TOTAL 0.7 mg/dL (0.2-1.2); CREATININE, serum 5.21 mg/dL (0.57-1.11); TOTAL PROTEIN 6.9 gm/dL (6.2-8.1)
[2022-01-20 16:40] LABS: POTASSIUM 6.5 mmol/L (3.5-4.5)
[2022-01-20] MEDS ORDERED: CRANBERRY 100 M1 SGL PO (17:37)
[2022-01-20] MEDS ORDERED: MACRODANTIN100 PO (17:37)
[2022-01-20] MEDS ORDERED: DAZIDOX10 MG PO (17:38)
[2022-01-20] MEDS ORDERED: ZESTRIL 20MG TA20 MG PO (17:39)
[2022-01-20 18:26] LABS: COLLECTION METHOD CLEAN CATCH
[2022-01-20 18:59] LABS: PH 5.5 (5.0-8.5); URINE APPEARANCE Turbid (CLEAR/HAZY); URINE BLOOD 3+ (NEGATIVE); URINE COLOR OTHER (YELLOW); URINE GLUCOSE Negative (NEGATIVE); URINE KETONE Negative (NEGATIVE); URINE NITRATE Positive (NEGATIVE); URINE PROTEIN(semi-quant) 3+ (NEGATIVE); URINE UROBILINOGEN 0.2 E.U/dL (0.2-1.0)
[2022-01-20 19:10] LABS: SQUAMOUS EPITHELIAL 0-2 /hpf (0-10); URINE BACTERIA Occasional /hpf (NONE SEEN); URINE RBC >50 /hpf (0-2)
--- NOTE | 2022-01-20 19:44 | NUR ---
Medications, allergies, and pharmacy reviewed with patient. Consent recieved for blood transfusion.
[2022-01-20 19:47] VITALS: BP 147/71; PULSE 77; TEMP 97.5
--- NOTE | 2022-01-20 19:55 | NUR ---
Patient unaware of what chemo medications she takes. KALEY Helton made aware.
[2022-01-20 23:14] VITALS: BP 157/81; PULSE 90; TEMP 100
[2022-01-20 23:29] VITALS: BP 150/64; PULSE 92; TEMP 98.9
[2022-01-20 23:59] VITALS: BP 136/72; PULSE 85; TEMP 99.4
[2022-01-21] VITALS (14 sets, daily range): BP systolic 119–153; BP diastolic 67–80; PULSE 67–85; TEMP 97.6–99.7
[2022-01-21 03:24] LABS: BASO % 0.3 % (0.0-2.0); EOS # 0.1 K/mm3 (0.0-0.7); EOS % 0.9 % (0.0-4.0); GRAN # 5.8 K/mm3 (1.4-6.5); GRAN % 86.7 % (42.2-75.2); LYMPH # 0.4 K/mm3 (1.2-3.4); LYMPH % 5.2 % (20.0-51.0); MEAN CELL VOLUME 97 fl (80.0-100.0); MEAN CORPUSCULAR HGB CONC 31 g/dl (33.0-37.0); MEAN PLATELET VOLUME 11.1 fl (7.4-10.4); MONO # 0.4 K/mm3 (0.1-0.6); MONO % 5.9 % (1.7-9.3); PLATELET COUNT 87 K/mm3 (130-400); RED BLOOD COUNT 2.43 M/mm3 (4.10-5.30); REDCELL DISTRIBUTION WIDTH-CV 15.7 % (11.5-14.5)
[2022-01-21 03:27] LABS: HEMATOCRIT 23.5 % (37.0-47.0); HEMOGLOBIN 7.3 g/dl (12.5-16.0); MEAN CORPUSCULAR HEMOGLOBIN 30 pg (27-31)
[2022-01-21 04:03] LABS: CALCIUM 7.7 mg/dL (8.4-10.2); CREATININE, serum 4.72 mg/dL (0.57-1.11)
[2022-01-21 04:07] LABS: POTASSIUM 6.1 mmol/L (3.5-4.5)
[2022-01-21 05:01] LABS: BASO % 0.3 % (0.0-2.0); EOS # 0.1 K/mm3 (0.0-0.7); EOS % 0.9 % (0.0-4.0); GRAN # 5.8 K/mm3 (1.4-6.5); GRAN % 86.1 % (42.2-75.2); LYMPH # 0.4 K/mm3 (1.2-3.4); LYMPH % 5.7 % (20.0-51.0); MEAN CELL VOLUME 97 fl (80.0-100.0); MEAN CORPUSCULAR HGB CONC 31 g/dl (33.0-37.0); MEAN PLATELET VOLUME 11.3 fl (7.4-10.4); MONO # 0.4 K/mm3 (0.1-0.6); PLATELET COUNT 84 K/mm3 (130-400); RED BLOOD COUNT 2.36 M/mm3 (4.10-5.30); REDCELL DISTRIBUTION WIDTH-CV 15.8 % (11.5-14.5)
[2022-01-21 05:06] LABS: HEMATOCRIT 22.8 % (37.0-47.0); MEAN CORPUSCULAR HEMOGLOBIN 30 pg (27-31)
--- NOTE | 2022-01-21 05:15 | NUR ---
PT ARRIVED TO THE MEDICAL FLOOR DURING SHIFT CHANGE TO ROOM 317. PT A&O X 4; VSS FOR PT WITH SOME ELEVATED TEMPS; O2 RA. PT DENIED GENERAL PAIN, CHEST PAIN, PALPITATIONS, N,V,D, SOB OR DIZZINESS. ADMISSIONS ASSESSMENT AND MED REC COMPLETE. PT ORIENTED TO ROOM AND HOSPITAL POLICY. HOSPITALIST CALLED FOR CRITICAL K+(5.1). DEXTROSE, NOVOLIN, KAYEXALATE, VELTASSA, SODIUM BICARB ORDERED AND GIVEN. VS TAKEN BEFORE BLOOD TRANSFUSION. PT'S TEMP WAS ELEVATED (100.0). HOSPITALIST CALLED. HOSPITALIST GAVE APPROVAL TO START TRANSFUSION WITH ELEVATED TEMP. ONE UNIT OF IRRADIATED LPRC TRANSFUSED. PT TOLERATED WELL. HOSPITALIST CALLED WITH ANOTHER CRITICAL K+(6.1) & CO2(12). DEXTROSE AND NOVOLIN ORDERED AND GIVEN. WILL CONTINUE TO MONITOR. PT EXPRESSED NO ADDITIONAL NEEDS AT THIS TIME. CALL LIGHT WITHIN REACH.
[2022-01-21 07:07] LABS: CALCIUM 7.6 mg/dL (8.4-10.2); CREATININE, serum 4.71 mg/dL (0.57-1.11); POTASSIUM 5.6 mmol/L (3.5-4.5)
--- NOTE | 2022-01-21 07:20 | NUR ---
PT'S BS DROPPED TO 58 AT 0643HRS AFTER LAST DEXTROSE/NOVOLIN TREATMENT FOR ELEVATED K+. DEXTROSE TABS GIVEN PER HYPOGLYCEMIC PROTOCOL. BS UP TO 83 AFTER PROTOCOL. INFORMATION PASSED ON TO DAYSHIFT RN FOR CONTINUED MONITORING. CALL LIGHT WITHIN REACH.
--- NOTE | 2022-01-21 08:11 | NUR ---
PATIENT AROUSABLE TO NAME, CURRENTLY RESTIGN IN BED. ON APPEARANCE PATIETN LOOKS PALE, VERBALIZES FEELING "TIRED AND WEAK." BED ALARM ON EDUCATION PROVIDED ON URINE SAMPLE NEEDED SOON POSSIBLE. PATIENT DID NOT CALL LAS TIME SHE URINATED. BED ALARM ON TO ENSURE WE CAN GET A URINE SAMPLE WHEN SHE GETS UP.
[2022-01-21 09:18] LABS: CREATININE, serum 4.56 mg/dL (0.57-1.11); FRACTIONAL EXCRETION OF NA+ 3.95 %
--- NOTE | 2022-01-21 09:53 | NUR ---
PATIENT GIVEN IV INSULIN AND DEXTROSE (SEE EMAR). SHE IS CURRENTLY AWAKE AND ALERT, RESTING IN BED. TOLERATED ALL MEDICATIONS. BLOOD SUGAR STABLE AT THIS TIME. PATIENT WITH NO COPMLAINTS AT THIS TIME. CALL LIGHT WITH IN REACH.
--- NOTE | 2022-01-21 11:30 | NUR ---
PTAIENTS BLOOD SUGAR CHECK 79. PATIENT GIVEN JUICE AND GRAHA CRACKERS. PATIENT WITH NO COMPLIANTS AT THIS TIME. RESTING IN BED. REQUESTED TO BE LEFT ALONE TO SLEEP.
--- NOTE | 2022-01-21 12:44 | NUR ---
BLOOD TRANSFUSION COMPLETE, PATIENT TOLERATED, NO COMPLICATIONS OR S/S OF REACTION. PATIENT ALERT AND AWAKE, RESTING IN BED. CALL LIGHT WITHIN REACH.
--- NOTE | 2022-01-21 12:56 | NUR ---
stopped by but nothing needed at this time.
[2022-01-21 16:42] LABS: HEMATOCRIT 25.5 % (37.0-47.0); HEMOGLOBIN 8.2 g/dl (12.5-16.0)
[2022-01-22 03:18] VITALS: BP 139/70; PULSE 79; TEMP 98.7
[2022-01-22 07:56] VITALS: BP 118/64; PULSE 88; TEMP 98.9
--- NOTE | 2022-01-22 08:00 | NUR ---
Patient laying in bed, A&Ox4. VSS. IV CDI, fluids infusing. Reports aches/pain all over body. Pain medication given as requested. Patient independent in the room. No further needs expressed. Chemo precautions in place. Call light within reach
[2022-01-22 10:58] LABS: ALBUMIN 1.6 gm/dL (3.4-4.8); CALCIUM 7.5 mg/dL (8.4-10.2); CREATININE, serum 4.11 mg/dL (0.57-1.11); PHOSPHOROUS 4.1 mg/dL (2.3-4.7); POTASSIUM 5.5 mmol/L (3.5-4.5)
[2022-01-22 11:38] VITALS: BP 133/73; PULSE 75; TEMP 97.8
[2022-01-22 15:22] VITALS: BP 127/75; PULSE 80; TEMP 97.5
--- NOTE | 2022-01-22 17:50 | NUR ---
Patient had an uneventful day. Rested in bed most of the shift. A&Ox4. VSS. IV CDI, fluids infusing. Patient independent in the room. Pain medication given when requested. No further needs expressed. Call light within reach
--- NOTE | 2022-01-22 18:20 | NUR ---
Resort Keeper met with patient for intake assessment/discharge planning. A chart review indicates patient works with oncology and has had recent conversation with physician about end-of-life/hospice care and does not believe she is ready for that at this time. Patient presents alert and oriented, sitting on her bed. She states she lives alone in a house in [place], and is adamant she is independent in her ADLs and IADLs, "I take care of myself. Everything. I'm still okay." She denies use of any medical equipment at home, reporting she likes to stay very active "I'm up, down, up down," and references taking care of her household and preparing meals throughout her day since [facility]. Patient's primary care physician is Dr. Crowe, and she obtains her medications at [facility] in [place] with no difficulties. She confirms her DPOA-HC on record remains accurate appointing both her adult son and daughter as her healthcare agents. Patient denies any need for in-home support services at discharge with a plan to go home. *Discharge plan: to home pending PT/OT evals*
[2022-01-22 19:45] VITALS: BP 133/73; PULSE 82; TEMP 98
[2022-01-22 23:36] VITALS: BP 140/76; PULSE 86; TEMP 99.2
[2022-01-23 04:28] VITALS: BP 131/70; PULSE 90; TEMP 98.4
[2022-01-23 06:35] LABS: BASO % 0.3 % (0.0-2.0); EOS # 0.2 K/mm3 (0.0-0.7); EOS % 2.3 % (0.0-4.0); GRAN # 5.5 K/mm3 (1.4-6.5); GRAN % 85.1 % (42.2-75.2); LYMPH # 0.4 K/mm3 (1.2-3.4); LYMPH % 5.4 % (20.0-51.0); MEAN CELL VOLUME 94 fl (80.0-100.0); MEAN CORPUSCULAR HGB CONC 32 g/dl (33.0-37.0); MEAN PLATELET VOLUME 11.7 fl (7.4-10.4); MONO # 0.4 K/mm3 (0.1-0.6); PLATELET COUNT 80 K/mm3 (130-400); RED BLOOD COUNT 2.39 M/mm3 (4.10-5.30); REDCELL DISTRIBUTION WIDTH-CV 15.9 % (11.5-14.5)
[2022-01-23 06:40] LABS: HEMATOCRIT 22.5 % (37.0-47.0); HEMOGLOBIN 7.2 g/dl (12.5-16.0); MEAN CORPUSCULAR HEMOGLOBIN 30 pg (27-31)
[2022-01-23 06:53] LABS: ALBUMIN 1.4 gm/dL (3.4-4.8); CALCIUM 7.4 mg/dL (8.4-10.2); CREATININE, serum 4.15 mg/dL (0.57-1.11); MAGNESIUM 1.5 mg/dL (1.6-2.6); POTASSIUM 5.5 mmol/L (3.5-4.5)
[2022-01-23 07:41] VITALS: BP 117/65; PULSE 82; TEMP 98.3
--- NOTE | 2022-01-23 08:00 | NUR ---
Patient sitting up in bed headphone in ear. A&Ox4. VSS. IV CDI, fluids infusing. Denies pain and discomfort. Independent in the room. Call light within reach
--- NOTE | 2022-01-23 09:09 | NUR ---
Initial visit; Patient thanked Resin Shaver for coming in and wishing her well and a rapid recovery.
[2022-01-23 11:03] VITALS: BP 135/73; PULSE 90; TEMP 98
[2022-01-23 15:12] VITALS: BP 137/76; PULSE 89; TEMP 97.8
--- NOTE | 2022-01-23 19:16 | NUR ---
Patient had an uneventful day. A&Ox4. VSS. IV CDI, fluids infusing. Reports pain all over body, did not request pain medication. Patient was wanting to go home today, but is stayin in the hospital. No further needs expressed. Call light within reach
[2022-01-23 20:14] VITALS: BP 125/69; PULSE 97; TEMP 99.1
[2022-01-24 00:13] VITALS: BP 113/64; PULSE 85; TEMP 98.7
[2022-01-24 04:23] VITALS: BP 114/57; PULSE 82; TEMP 98.6
[2022-01-24 05:36] LABS: BASO % 0.3 % (0.0-2.0); EOS # 0.2 K/mm3 (0.0-0.7); EOS % 2.4 % (0.0-4.0); GRAN # 5.6 K/mm3 (1.4-6.5); GRAN % 83.5 % (42.2-75.2); LYMPH # 0.4 K/mm3 (1.2-3.4); LYMPH % 6.4 % (20.0-51.0); MEAN CELL VOLUME 98 fl (80.0-100.0); MEAN CORPUSCULAR HGB CONC 31 g/dl (33.0-37.0); MEAN PLATELET VOLUME 11.7 fl (7.4-10.4); MONO # 0.5 K/mm3 (0.1-0.6); MONO % 6.7 % (1.7-9.3); PLATELET COUNT 65 K/mm3 (130-400); RED BLOOD COUNT 2.47 M/mm3 (4.10-5.30); REDCELL DISTRIBUTION WIDTH-CV 15.9 % (11.5-14.5)
[2022-01-24 05:48] LABS: ALBUMIN 1.4 gm/dL (3.4-4.8); CALCIUM 7.7 mg/dL (8.4-10.2); CREATININE, serum 4.19 mg/dL (0.57-1.11); PHOSPHOROUS 4.2 mg/dL (2.3-4.7); POTASSIUM 5.3 mmol/L (3.5-4.5)
[2022-01-24 05:52] LABS: HEMATOCRIT 24.3 % (37.0-47.0); HEMOGLOBIN 7.5 g/dl (12.5-16.0); MEAN CORPUSCULAR HEMOGLOBIN 30 pg (27-31)
[2022-01-24 07:39] VITALS: BP 135/75; PULSE 98; TEMP 98
[2022-01-24] MEDS ORDERED: VELTASSA8.4 GM PO (09:02)
[2022-01-24] MEDS ORDERED: SODIUM BICARBO650 MG PO (09:02)
[2022-01-24] MEDS ORDERED: MONUROL 3 GM3 G/PKT PO (09:04)
[2022-01-24] MEDS ORDERED: PROTONIX 40MG T40 MG PO (09:05)
--- NOTE | 2022-01-24 10:12 | NUR ---
Follow-up visit; Patient thanked Apprentice Photographer for stopping to see how she was getting along and to wish her well and offer Blessings. Linh is going home to be with family.
--- NOTE | 2022-01-24 11:30 | NUR ---
PATIENT LEFT AT 1130 AM. PATIENT WAS TAKEN VIA WHEELCHAIR TO CAR IN ED. PATIENT LEFT IN STABLE CONDITION. HER DAUGHTER WAS INFORMED BY FADI THIS MORNING OF DISCHARGE TODAY.
[2022-01-24 11:49] VITALS: BP 123/57; PULSE 89; TEMP 98
--- NOTE | 2022-01-24 12:14 | NUR ---
PATIENT GIVEN DISCHARGE INTSTRUCTIONS, EDUCATION AND FOLLOW APTS. R CHEST[place] DEACCESSED. IV TO RF AND TELEMETRY BOTH DISCONTINUED.
--- NOTE | 2022-01-24 14:40 | NUR ---
Industrial Technician attended clinical rounds with the team and patient to discharge home today. SW met with patient who advised she is looking forward to going home today. SW reviewed IM form with patient who verbalized understanding and provided signature. SW placed form in chart and provided copy to patient. SW attempted to contact patient's daughter, Adele and left a voicemail. Discharge Plan: Home
== END 2022-01-24 11:30 | disposition home or self-care (01) | DRG 811 ==
LOC: COL.ER 15:48 → MEDICAL 18:12
PROVIDERS: Family Medicine; Physician Assistant; ADMIT Internal Medicine
PROC: 30233N1 Transfusion of Nonautologous Red Blood Cells into Peripheral Vein, Percutaneous Approach (ICD-10-PCS; principal; 2022-01-20)
DX: D62 Acute posthemorrhagic anemia (principal); N18.6 End stage renal disease; C78.00 Secondary malignant neoplasm of unspecified lung; C79.00 Secondary malignant neoplasm of unspecified kidney and renal pelvis; N17.9 Acute kidney failure, unspecified; N13.8 Other obstructive and reflux uropathy; N13.6 Pyonephrosis; Z16.12 Extended spectrum beta lactamase (ESBL) resistance; I12.0 Hypertensive chronic kidney disease with stage 5 chronic kidney disease or end stage renal disease; E87.20 Acidosis, unspecified; E87.1 Hypo-osmolality and hyponatremia; E87.5 Hyperkalemia; G62.9 Polyneuropathy, unspecified; B96.20 Unspecified Escherichia coli [E. coli] as the cause of diseases classified elsewhere; Z85.048 Personal history of other malignant neoplasm of rectum, rectosigmoid junction, and anus; Z23 Encounter for immunization
CPT/HCPCS: C9113; J0610; J0696; J1644; J1815; J2543; J3475; J7030; P9040